=== PATIENT | male | born 1960 | race Caucasian/White ===

== ENCOUNTER 2023-09-23 15:16 | Emergency (ER) | payer BC, SELFPAY ==
[2023-09-23 15:18] VITALS: BP 174/100
[2023-09-23 16:24] VITALS: BP 157/89
[2023-09-23 17:12] LABS: % Basophils 0.5 % (0-2); % Eosinophils 2.5 % (0-6); % Immature Granulocytes 0.3 % (0-0.5); % Lymphocytes 21.7 % (20.5-51.1); % Monocytes 8.1 % (1.7-9.3); % Neutrophils 66.9 % (42.2-75.2); Absolute Basophils 0.1 10^3/uL (0-0.2); Absolute Eosinophils 0.3 10^3/uL (0-0.7); Absolute Lymphocytes 2.2 10^3/uL (1.2-3.4); Absolute Monocytes 0.8 10^3/uL (0.1-0.6); Absolute Neutrophils 6.6 10^3/uL (1.4-6.5); Hematocrit 36.5 % (39.0-52.0); Mean Corp Hgb Conc. 35.6 g/dL (33.0-37.0); Mean Corpuscular Volume 84.3 fL (80.0-94.0); Mean Platelet Volume 10.8 fL (7.4-10.4); Nucleated Red Blood Cells % 0 % (-); Platelet Count 187 10^3/uL (130-400); Red Blood Cell Count 4.33 10^6/uL (4.70-6.10); Red Cell Dist. Width 13.3 % (11.5-14.5); White Blood Cell Count 9.9 10^3/uL (4.8-10.8)
--- NOTE | 2023-09-23 17:26 | ED.GENMED ---
History of Present Illness
General
Chief Complaint: Blood Pressure Problem
Source: patient
Exam Limitations: none
Time Seen by Provider: 09/23/23 16:24
Nursing documentation reviewed up to this point in time: agreed with
Travel History
Have you had any contact with someone who has COVID-19?: No
Do you have any symptoms of coronavirus? Fever > 100 degrees, chills, cough, shortness of breath, sore throat, loss of taste or smell, muscle aches, or headache?: No
History of Present Illness
History of Present Illness:
62-year-old male with a history of A-fib status post ablation hypertension and hyperlipidemia, [id number] diabetes
here after being sent fro [facility] office for elevated bp 180-190/100
pt says he took all of his med stodya, including Diovan, 160 mg and metoprolol 50 mg succinate
Patient says he went to the dentist for cleaning. He had a mild headache at the time. When they routinely checked his blood pressure goes with the readings. Subsequently patient did tell them that he was having a jittery feeling, felt lightheaded
and had a slight headache, 2 out of 10. He is not having any residual lightheadedness, chest pain, shortness of breath, vision changes. His headache is still 2 out of 10 and he has not taken anything for it. He said he ate breakfast that morning
but he did not eat lunch. He was waiting to eat lunch until after his cleaning. This occurred around 2:15 PM today. Patient came directly here. He denies any facial numbness or tingling, focal weakness in his upper extremities or lower
extremities,
His normal blood pressure is around 130/80
Past History
Past History
ED Past Medical History: Arrthythmia (Atrial fib), Cancer, HTN, Hypercholesterolemia and NIDDM
ED Past Surgical History: Orthopedic and Other (Bone marrow)
Social History
Tobacco: Non-smoker
Alcohol: Occasional
Personal:
Living: with family
Employment: Employed
Review of Systems
Review of Systems
Allergies reviewed?: Yes
All Other Systems: Not applicable
Phy Exam
Physical Exam
Physical Exam:
GENERAL: Alert , in no apparent distress
EYE: pupils equal and reactive
NECK: Supple
ENT: o/p clr, mmm.
CARDIAC: Regular rate and rhythm .
LUNGS: Clear breath sounds bilaterally, no acute respiratory distress, no wheezes/rales/rhonchi
ABDOMEN: Soft, without focal tenderness, no r/g, no cvat, normal bowel sounds
NEUROLOGICAL: Alert and oriented, no focal neuro deficits, cn intact, 5/5 strength, sensatino intact, finger to nose normal
SKIN: Warm and dry, skin intact.
MUSCULOSKELETAL: No edema, well perfused. neg latia's sign
PSYCH: Normal and appropriate interaction.
Course
Orders/Labs/Results
Orders:
Orders
09/23/23 16:50
Electrocardiogram (*1) Stat
Reason for Study: Other
Other Reason for Exam: Headache
EKG- Treatment ONCE
Acetaminophen [Tylenol] 1,000 mg PO NOW STA
09/23/23 16:58
Complete Blood Count/With Diff Urgent
Comprehensive Metabolic Panel Urgent
Troponin I Urgent
Abnormal Lab Results
09/23/23
16:58
RBC 4.33 L 10^6/uL
(4.70-6.10)
Hct 36.5 L %
(39.0-52.0)
MPV 10.8 H fL
(7.4-10.4)
Absolute Neuts (auto) 6.6 H 10^3/uL
(1.4-6.5)
Absolute Monos (auto) 0.8 H 10^3/uL
(0.1-0.6)
Sodium 133 L mmol/L
(135-145)
Glucose 277 H mg/dl
(70-99)
09/23/23 16:58
09/23/23 16:58
Vital Signs
Initial and Last Documented VS:
Initial Vital Signs
Temp Pulse Resp BP Pulse Ox
98.5 F 92 16 174/100 99
09/23/23 15:18 09/23/23 15:18 09/23/23 15:18 09/23/23 15:18 09/23/23 15:18
Last Documented Vital Signs
Temp Pulse Resp BP Pulse Ox
98.5 F 92 16 152/89 99
09/23/23 15:18 09/23/23 15:18 09/23/23 15:18 09/23/23 17:58 09/23/23 15:18
MDM/Problems Addressed
Differential Diagnosis Includes:
htn, headache, hyperglycemia, anxiety
MDM/Problems Addressed:
62 y/o M with h/o htn, afib s/p ablations, NIDDM
hasn't worn c pap in > 1 year
here with mild headache, lightheadedness, jittery feeling when at the dentist office today for cleaning
they checked his BP prior to starting and it was elevated
pt had taken his meds but he hadn't eaten lunch
he came here and mostly feels better, midl headache but no lighrtheadedness
here pt's bp was elevated in triage but came down to 150/80s
pt is well appearing
neuro is intact
no c/o chest pain
has ekg which is sinus, LBBB, has subtle flattening laterally more than previously but no signfiicant changes
screening labs showed hyperglycemia but otherwise normal AG, normal cr
bp again 150/70
pt's headache resolved with tylenol
d/w ed attending
consider that pt's BP is elevated because of sleep apnea, nonomcpliance with his cpap
pt will f/u with pcp
stable for discharge
*Critical Care Note
Total Time (30-74mins, 75-104mins- exclusive of procedures): Not Applicable
ED Attending Note
-
Portions of this chart may have been created with voice recognition software.� Occasional wrong word or��sound alike� substitutions may have occurred due to the inherent limitations of voice recognition software.
Discharge Plan
Departure
Patient Disposition: Home (Routine Discharge)
Date of Disposition: 09/23/23
Time of Disposition: 18:09
Patient with high blood pressure during this ER visit?: Yes
Condition: Fair
Discharge Problem:
Hypertension, Type 2 diabetes mellitus without complications
Instructions: High Blood Pressure (DC), High Blood Sugar, Adult (DC)
Prescriptions:
No Action
rosuvastatin [Crestor] 10 MG tablet
1 ea PO HS
metformin 500 MG tablet
1,000 mg PO BID
amiodarone [Pacerone] 200 MG tablet
200 mg PO DAILY
pantoprazole 40 MG tablet,delayed release (DR/EC)
40 mg PO DAILY Qty: 14 0RF
Rx Instructions:
Take daily for 2 weeks then stop
sitagliptin phosphate [Januvia] 100 MG tablet
100 mg PO DAILY Qty: 30 1RF
Rx Instructions:
=
metoprolol succinate 50 MG tablet extended release 24 hr
50 mg PO DAILY
apixaban [Eliquis] 5 MG tablet
5 mg PO BID
valsartan [Diovan] 160 MG capsule
160 mg PO DAILY
Referrals:
Catarino Torres MD [Family Provider] - Follow up in 2-3 days
Activity Restrictions/Additional Instructions:
YOUR BLOOD PRESSURE CAME DOWN IN THE ER.
YOU SHOULD CONTINUE YOUR MEDS
THIS COULD HAVE BEEN SIUTATIONAL ELEVATION OF YOUR BLOOD PRESSURE
YOUR BLOOD SUGAR IS ELEVATED, YOU SHOULD BE SURE TO TAKE YOUR MEDICATION AND AVOID SUGARY FOODS
FOLLOW UP WITH YOUR DOCTOR THIS WEEK FOR BLOOD PRESSURE CHECK
RETURN FOR: WORSENING BLOOD PRESSURE, HEADACHE, BLURRED VISION, WEAKNESS, NUMBNESS, CHEST PAIN, SHORNTESS OF BREATH, OR ANY CONCERNS,
Interventions
Interventions:
*Risk Screen - Suicide Last Done: 09/23/23 15:18
*General Assessment Last Done: 09/23/23 15:18
*Neglect/Abuse Screening Last Done: 09/23/23 15:18
ED- Fall Risk Assessment Last Done: 09/23/23 18:15
*ED COVID-19 Vaccine History Last Done: 09/23/23 15:18
*Nursing Disposition Last Done: 09/23/23 18:15
ED- Cardiac Assessment Last Done: 09/23/23 18:15
ED- Neurological Assessment Last Done: 09/23/23 18:15
ED- Pulmonary Assessment Last Done: 09/23/23 18:15
Discharge Date and Time
Discharge Date/Time: 09/23/23 18:16
[2023-09-23 17:28] LABS: ALT (SGPT) 33 U/L (0-50); AST (SGOT) 35 U/L (17-59); Albumin 4.3 g/dl (3.5-5.0); Alkaline Phosphatase 53 U/L (38-126); Blood Urea Nitrogen 17 mg/dl (9-20); Calcium 9.4 mg/dl (8.4-10.2); Carbon Dioxide 27 mmol/L (22-30); Chloride 98 mmol/L (98-107); Glucose 277 mg/dl (70-99); Potassium 4.1 mmol/L (3.5-5.1); Sodium 133 mmol/L (135-145); Total Bilirubin 0.5 mg/dl (0.2-1.3); Total Protein 7.1 g/dl (6.3-8.2); eGFR > 60.00
[2023-09-23 17:35] LABS: Troponin I < 0.012 ng/ml
[2023-09-23] MEDS: TYLENOL 1000 MG PO (17:43)
[2023-09-23 17:58] VITALS: BP 152/89
== END 2023-09-23 18:16 | disposition home or self-care (01) ==
LOC: EMR 15:16
PROVIDERS: Physician Assistant; EMERGENCY PHYSICIAN Emergency Medicine; FAMILY PHYSICIAN Family Medicine
DX: R03.0 Elevated blood-pressure reading, without diagnosis of hypertension (principal); I48.91 Unspecified atrial fibrillation; I10 Essential (primary) hypertension; E11.9 Type 2 diabetes mellitus without complications
CPT/HCPCS: 99283; 80053; 84484; 85025; 93005

== ENCOUNTER 2023-09-26 13:47 | Emergency (ER) | payer BC, SELFPAY ==
[2023-09-26 13:52] VITALS: BP 179/96
[2023-09-26 14:17] LABS: % Basophils 0.6 % (0-2); % Eosinophils 3.1 % (0-6); % Immature Granulocytes 0.5 % (0-0.5); % Lymphocytes 25.1 % (20.5-51.1); % Monocytes 8.6 % (1.7-9.3); % Neutrophils 62.1 % (42.2-75.2); Absolute Basophils 0.1 10^3/uL (0-0.2); Absolute Eosinophils 0.3 10^3/uL (0-0.7); Absolute Immature Granulocytes 0.1 10^3/uL (0-0.05); Absolute Lymphocytes 2.7 10^3/uL (1.2-3.4); Absolute Monocytes 0.9 10^3/uL (0.1-0.6); Absolute Neutrophils 6.7 10^3/uL (1.4-6.5); Hematocrit 42.4 % (39.0-52.0); Hemoglobin 14.8 g/dL (13.0-18.0); Mean Corp Hgb Conc. 34.9 g/dL (33.0-37.0); Mean Platelet Volume 10.5 fL (7.4-10.4); Nucleated Red Blood Cells % 0 % (-); Platelet Count 216 10^3/uL (130-400); Red Blood Cell Count 4.93 10^6/uL (4.70-6.10); Red Cell Dist. Width 13.6 % (11.5-14.5); White Blood Cell Count 10.7 10^3/uL (4.8-10.8)
[2023-09-26 14:26] LABS: ALT (SGPT) 43 U/L (0-50); AST (SGOT) 48 U/L (17-59); Alkaline Phosphatase 48 U/L (38-126); Blood Urea Nitrogen 17 mg/dl (9-20); Calcium 9.8 mg/dl (8.4-10.2); Carbon Dioxide 25 mmol/L (22-30); Chloride 102 mmol/L (98-107); Glucose 201 mg/dl (70-99); Potassium 4.1 mmol/L (3.5-5.1); Sodium 136 mmol/L (135-145); Total Bilirubin 0.6 mg/dl (0.2-1.3); Total Protein 8.4 g/dl (6.3-8.2); eGFR > 60.00
[2023-09-26 17:05] VITALS: BP 164/101
--- NOTE | 2023-09-26 17:07 | ED.GENMED ---
History of Present Illness
General
Chief Complaint: Blood Pressure Problem
Source: patient and previous hospital records
Exam Limitations: none
Time Seen by Provider: 09/26/23 16:29
Nursing documentation reviewed up to this point in time: agreed with
Travel History
Have you had any contact with someone who has COVID-19?: No
Do you have any symptoms of coronavirus? Fever > 100 degrees, chills, cough, shortness of breath, sore throat, loss of taste or smell, muscle aches, or headache?: No
History of Present Illness
History of Present Illness:
The patient is a 71-year-old man with a past medical history of hypertension who comes in because he reports his blood pressure has been persistently elevated. Patient reports that at home, it was 190/100. Patient reports mild headache but denies
vision changes, weakness, numbness, chest pain or shortness of breath. Patient reports he feels well but he wants to make sure his blood pressure is better controlled.
Past History
Past History
ED Past Medical History: Arrthythmia (Atrial fib), Cancer, HTN, Hypercholesterolemia and NIDDM
ED Past Surgical History: Orthopedic and Other (Bone marrow)
Social History
Tobacco: Non-smoker
Alcohol: Occasional
Personal:
Living: with family
Employment: Employed
Family History
Family History: Other
Review of Systems
Review of Systems
Allergies reviewed?: Yes
All Other Systems: ROS reviewed and negative except as documented in HPI and ROS
Constitutional: Reports no symptoms
EENT: Reports no symptoms
Respiratory: Reports no symptoms
Cardiac: Reports no symptoms
ABD/GI: Reports no symptoms
: Reports no symptoms
Musculoskeletal: Reports no symptoms
Neurological: Reports headache
Endocrine: Reports no symptoms
Hematologic/Lymphatic: Reports no symptoms
Psychiatric: Reports no symptoms
Phy Exam
Physical Exam
Physical Exam:
Physical Exam
General: no apparent distress, not acutely ill. Well and comfortable appearing, smiling and conversational
Neck: supple. no meningeal signs. normal psoterior pharynx
Heart: s1/s2 regular rate and rhythm, no murmur. equal radial pulses.
Lungs: no acute respiratory distress. clear bilaterally
Abdomen: normal bowel sounds. not tender. no CVAT
Neuro: alert and oriented. no focal neurological deficits. EOMI. steady gait. 5 out of 5 strength in all extremities. Cranial nerves equal and symmetric bilaterally
Skin: no rash
Psychiatric: well kept. interactive and cooperative
Extremities: no edema. no calf tenderness. negative homans. good distal pulses
Course
Orders/Labs/Results
Orders:
Orders
09/26/23 13:55
EKG [Electrocardiogram (*1)] Urgent
Reason for Study: Hypertension, Benign
EKG- Treatment ONCE
09/26/23 14:06
Complete Blood Count/With Diff Urgent
Comprehensive Metabolic Panel Urgent
09/26/23 17:15
Valsartan [Diovan] 160 mg PO NOW STA
Abnormal Lab Results
09/26/23
14:06
MPV 10.5 H fL
(7.4-10.4)
Abs Immat Gran (auto) 0.1 H 10^3/uL
(0-0.05)
Absolute Neuts (auto) 6.7 H 10^3/uL
(1.4-6.5)
Absolute Monos (auto) 0.9 H 10^3/uL
(0.1-0.6)
Glucose 201 H mg/dl
(70-99)
Total Protein 8.4 H g/dl
(6.3-8.2)
09/26/23 14:06
09/26/23 14:06
Vital Signs
Initial and Last Documented VS:
Initial Vital Signs
Temp Pulse Resp BP Pulse Ox
98.4 F 79 18 179/96 98
09/26/23 13:52 09/26/23 13:52 09/26/23 13:52 09/26/23 13:52 09/26/23 13:52
Last Documented Vital Signs
Temp Pulse Resp BP Pulse Ox
98.4 F 74 15 168/96 99
09/26/23 18:08 09/26/23 18:08 09/26/23 18:08 09/26/23 18:08 09/26/23 18:08
MDM/Problems Addressed
Differential Diagnosis Includes:
Hypertension, hypertensive urgency, hypertensive emergency
MDM/Problems Addressed:
Patient presents with mild headache and high blood pressure readings at home
Chronic conditions affecting care: HTN
Acute Exacerbation and/or Progression of Chronic Illness: HTN
*Pulse Oximetry
Patient hypoxic: no
*EKG
Interpreted by ED Provider?: Yes
Interpretation: abnormal
Comparison EKG: no changes
Rate: normal
Rhythm: sinus
Floris: normal axis
Interval: first degree heart block
QRS Pattern: left vent hypertrophy
Ischemia: non-specific ST changes
*Folding Machine Feeder Interpretation
Rate: normal
Interpretation: normal
Rhythm: sinus
*Critical Care Note
Total Time (30-74mins, 75-104mins- exclusive of procedures): Not Applicable
Data Reviewed
Source: patient
Patient Management
Discussion with other providers: Other (Case discussed with Dr. Mildred Sullivan who recommended that we double patient's Diovan dose.)
Escalation/DeEscalation of care consider admission/obs:
Patient looks extremely well and comfortable. He has had no chest pain or shortness of breath to suggest acute coronary syndrome. His neurological exam is normal. His creatinine is normal. Patient happy to go home and increase his dose of Diovan
ED Attending Note
-
Portions of this chart may have been created with voice recognition software.� Occasional wrong word or��sound alike� substitutions may have occurred due to the inherent limitations of voice recognition software.
Discharge Plan
Departure
Patient Disposition: Home (Routine Discharge)
Date of Disposition: 09/26/23
Time of Disposition: 17:11
Patient with high blood pressure during this ER visit?: Yes
Condition: Good
Covid-19: Not Applicable
Discharge Problem:
HBP (high blood pressure)
Instructions: High Blood Pressure (DC), BLOOD PRESSURE
Prescriptions:
New
valsartan [Diovan] 320 mg tablet
320 mg PO DAILY Qty: 30 0RF
No Action
rosuvastatin [Crestor] 10 MG tablet
1 ea PO HS
metformin 500 MG tablet
1,000 mg PO BID
amiodarone [Pacerone] 200 MG tablet
200 mg PO DAILY
pantoprazole 40 MG tablet,delayed release (DR/EC)
40 mg PO DAILY Qty: 14 0RF
Rx Instructions:
Take daily for 2 weeks then stop
sitagliptin phosphate [Januvia] 100 MG tablet
100 mg PO DAILY Qty: 30 1RF
Rx Instructions:
=
metoprolol succinate 50 MG tablet extended release 24 hr
50 mg PO DAILY
apixaban [Eliquis] 5 MG tablet
5 mg PO BID
valsartan [Diovan] 160 MG capsule
160 mg PO DAILY
Referrals:
Catarino Torres MD [Family Provider] -
Activity Restrictions/Additional Instructions:
Your tubing assembler recommended that you double the dose of your Diovan.
Interventions
Interventions:
*Risk Screen - Suicide Last Done: 09/26/23 13:52
*General Assessment Last Done: 09/26/23 13:52
*Neglect/Abuse Screening Last Done: 09/26/23 13:52
*ED COVID-19 Vaccine History Last Done: 09/26/23 13:52
*Nursing Disposition Last Done: 09/26/23 18:08
ED- Cardiac Assessment Last Done: 09/26/23 18:06
ED- Neurological Assessment Last Done: 09/26/23 18:06
ED- Pulmonary Assessment Last Done: 09/26/23 18:06
Discharge Date and Time
Discharge Date/Time: 09/26/23 18:09
[2023-09-26] MEDS: DIOVAN 160 MG PO (17:43)
[2023-09-26 18:08] VITALS: BP 168/96
== END 2023-09-26 18:09 | disposition home or self-care (01) ==
LOC: EMR 13:47
PROVIDERS: Emergency Medicine; EMERGENCY PHYSICIAN Emergency Medicine; FAMILY PHYSICIAN Family Medicine
DX: I10 Essential (primary) hypertension (principal); I48.91 Unspecified atrial fibrillation; E11.9 Type 2 diabetes mellitus without complications; E78.00 Pure hypercholesterolemia, unspecified
CPT/HCPCS: 99283; 80053; 85025; 93005

== ENCOUNTER 2023-09-30 21:57 | Inpatient (IN) | payer BC, SELFPAY ==
[2023-09-30] VITALS (15 sets, daily range): BP systolic 114–172; BP diastolic 67–97; PULSE 94–100; BMI 29.5; BMI 28.8
[2023-09-30 16:00] LABS: % Basophils 0.3 % (0-2); % Eosinophils 1.9 % (0-6); % Immature Granulocytes 0.5 % (0-0.5); % Monocytes 8.7 % (1.7-9.3); % Neutrophils 65.6 % (42.2-75.2); Absolute Eosinophils 0.2 10^3/uL (0-0.7); Absolute Immature Granulocytes 0.1 10^3/uL (0-0.05); Absolute Lymphocytes 2.5 10^3/uL (1.2-3.4); Absolute Neutrophils 7.2 10^3/uL (1.4-6.5); Hematocrit 39.3 % (39.0-52.0); Hemoglobin 13.9 g/dL (13.0-18.0); Mean Corp Hgb Conc. 35.4 g/dL (33.0-37.0); Mean Corpuscular Hgb 30.1 pg (27.0-31.0); Mean Corpuscular Volume 85.1 fL (80.0-94.0); Mean Platelet Volume 10.5 fL (7.4-10.4); Nucleated Red Blood Cells % 0 % (-); Platelet Count 215 10^3/uL (130-400); Red Blood Cell Count 4.62 10^6/uL (4.70-6.10); Red Cell Dist. Width 13.6 % (11.5-14.5); White Blood Cell Count 10.9 10^3/uL (4.8-10.8)
[2023-09-30 16:23] LABS: ALT (SGPT) 30 U/L (0-50); AST (SGOT) 29 U/L (17-59); Albumin 4.7 g/dl (3.5-5.0); Alkaline Phosphatase 52 U/L (38-126); Blood Urea Nitrogen 21 mg/dl (9-20); Calcium 10.1 mg/dl (8.4-10.2); Carbon Dioxide 26 mmol/L (22-30); Chloride 97 mmol/L (98-107); Glucose 187 mg/dl (70-99); Sodium 136 mmol/L (135-145); Total Bilirubin 0.5 mg/dl (0.2-1.3); Total Protein 7.8 g/dl (6.3-8.2); eGFR > 60.00
[2023-09-30 16:24] LABS: Potassium 4.1 mmol/L (3.5-5.1)
--- NOTE | 2023-09-30 17:56 | ED.GENMED ---
History of Present Illness
General
Chief Complaint: Blood Pressure Problem
Time Seen by Provider: 09/30/23 17:53
Travel History
Have you had any contact with someone who has COVID-19?: No
Do you have any symptoms of coronavirus? Fever > 100 degrees, chills, cough, shortness of breath, sore throat, loss of taste or smell, muscle aches, or headache?: No
History of Present Illness
History of Present Illness:
HPI: Patient presents due to concerns of elevated blood pressure readings. This is his third visit to the ED over the last week. The last time he was here his valsartan was increased from 160 mg to 320 mg daily. He is still taking metoprolol
succinate 50 mg daily. He became concerned today because he had 2 episodes (and then another 1 here) of right upper extremity and right lower extremity dysesthesias that lasted for about 10 seconds each time. He has a mild dull headache. He is on
Eliquis for atrial fibrillation. He had trouble getting a hold of cardiology but was told by them to follow-up with PMD and asked PMD for input regarding BP management.
EXAM:
GENERAL: Well appearing in no distress, he is hypertensive
HEENT: Moist oral mucosa
CARDIOVASCULAR: No murmurs, normal heart rate and rhythm, No chest wall tenderness
PULMONARY: No respiratory distress, breath sounds are clear and equal
ABDOMEN: Soft with no peritoneal signs, no tenderness
NEUROLOGIC: Excellent strength all extremities, no coordination deficits, there are no sensory deficits
PSYCHIATRIC: Appropriate mental status, normal insight and judgement
EXTREMITIES: Nontender, no edema, moves all extremities equally
SKIN: No rash, no lesions
ED COURSE:
5:30 PM: I initially evaluated patient
NUMBER AND COMPLEXITY OF PROBLEMS ADDRESSED AT THE ENCOUNTER
� Chronic conditions affecting care: Diabetes, non-Hodgkin's lymphoma, A-fib, high blood pressure, hyperlipidemia
� Acute Exacerbation and/or Progression of Chronic Illness: This is an acute problem
� Differential Diagnosis includes: Hypertensive urgency, intracranial mass, vascular abnormality
AMOUNT AND/OR COMPLEXITY OF DATA TO BE REVIEWED AND ANALYZED
� I performed an independent evaluation of and my interpretation is:
EKG: Intraventricular conduction delay, ventricular rate 90, LVH, no significant change from 09/26/23
CT: I personally viewed CT imaging of the brain which shows the hyperdensity in the left occipital lobe and I also reviewed CTA imaging and discussed with radiology�DrLeeann Harmon feels there is no vascular abnormality
X-rays:
Laboratory Studies: Mild leukocytosis with white count 10.9, chemistries relatively unremarkable glucose is 187
Other:
� Review of other/old records: I reviewed the notes from the last 2 visits as well as cardiology notes related to atrial fibrillation
� Clinical information was obtained by an independent historian: I spoke to the at bedside
� Prescriptions/Medications Considered but not given:
� Further testing considered but not performed:
RISK OF COMPLICATIONS AND/OR MORBIDITY OR MORTALITY OF PATIENT MANAGEMENT
� Social determinants of health affecting care: Lives at home
� Discussion with other providers: See below; hospitalist for admission at 8:30 PM
� Escalation of care including admission/observation vs risk of discharge considered: The patient is very well-appearing however the patient reports new unilateral paresthesias therefore CT imaging was obtained. The CT does show
a type density at the left occipital lobe therefore I discussed with Dr. Francis recommends keeping blood pressure under 140 systolic, MRI with and without contrast tomorrow, neurology evaluation (I also notified Dr. Beckman), CTA imaging of the
head and neck
Past History
Past History
ED Past Medical History: Arrthythmia (Atrial fib), Cancer, HTN, Hypercholesterolemia and NIDDM
ED Past Surgical History: Orthopedic and Other (Bone marrow)
Social History
Tobacco: Non-smoker
Alcohol: Occasional
Personal:
Living: with family
Employment: Employed
Family History
Family History: Other
Phy Exam
Physical Exam
Physical Exam:
See HPI
Course
Orders/Labs/Results
Orders:
Orders
09/30/23 15:47
Electrocardiogram (*1) Urgent
Reason for Study: Hypertension, Benign
EKG- Treatment ONCE
09/30/23 15:55
CMP [Comprehensive Metabolic Panel] Urgent
Complete Blood Count/With Diff Urgent
09/30/23 18:08
CT Head W/o Iv Contrast Urgent
Comment:
Reason For Exam: intermittent R paresthesias
09/30/23 18:55
Labetalol HCl [Trandate] 10 mg IV NOW STA
Levetiracetam Injectable [Keppra] 1,000 mg IV NOW STA
09/30/23 19:04
CT Head & Neck Angio W/wo IV Urgent
Comment:
Reason For Exam: intermittent R paresthesias; abnormal brain CT
09/30/23 20:08
HydrALAZINE [Apresoline] 10 mg IV NOW STA
09/30/23 21:42
Admit/Transfer Patient As Directed
Co-Sign Provider:
Level of Care: Inpatient admission
Assign to:: IMU- Intermediate Care
Physician / Group: Ishaan
Diagnosis: Occipital Lesion / CVA
Reason for Hospitalization: Occipital Lesion / CVA
Expected length of stay greater than two midnights?: Yes
ELOS- Estimated Length of Stay in days: 2
I certify the patient meets the requirements for IP care: Yes
09/30/23 21:43
Code Status As Directed
Resuscitation Status: Full Code
09/30/23 23:20
Acetaminophen [Tylenol] 650 mg PO Q4HPRN PRN
Dextrose 50%-Water [Dextrose 50% Syringe] 12.5 grams IV [id number] PRN
Glucagon [GlucaGen] 1 mg IM PRN PRN
HydrALAZINE [Apresoline] 10 mg IV Q6HPRN PRN
Labetalol HCl [Trandate] 10 mg IV Q6HPRN PRN
Rosuvastatin Calcium [Crestor] 10 mg PO HS
09/30/23 23:20
NEUROLOGY CONSULT Routine
Consulting Provider: Celina Beckman
Was physician already notified: Yes
Reason for consult: L Occipital Lesion, CVA symptoms.
Neurosurgery Consult Routine
Consulting Provider: Dinah Garza
Was physician already notified: Yes
Reason for Consult: L Occipital Lesion on CT
Activity As Directed
Activity Level: Ambulate
With Assistance
Bedside Glucose Monitoring As Directed
Frequency: AC&HS
Comment: Change to q6h if pt on TPN, tube feeding or not eating
Bladder Scan As Directed
Follow Bladder Retention/Intermittent Cath Algorithm?: Yes
PRN if no void in __ hours: 6
Frequency: Per Retention Algorithm
If Bladder Scan Result >: 400
then:: Straight cath
EKG with chest pain [ECG as needed] As Directed
ECG as needed for:: Chest Pain
I/O [Intake/ Output] As Directed
Frequency: Per unit guidelines
Neurological Checks As Directed
Frequency: q4h
Orthostatic Vital Signs As Directed
Orthostatic VS Frequency: BID
Pneumatic Compression Sleeves As Directed
Type: Knee high
Straight Cath As Directed
Frequency: Per Retention Algorithm
Additional Instructions: straight cath as needed per acute urinary retention algorithm for 24 hrs
Additional Instructions: for bladder scan greater than 400 mL
Vital Signs As Directed
Frequency: Per unit guidelines
Weight As Directed
Frequency: Daily
Oxygen Therapy [O2 Therapy] [RESP] Routine
Titrate/Wean O2 to maintain O2 sat greater than (%): 94
Ot Eval And Treat Routine
PT Consult [Pt Eval And Treat] Routine
Activity Level: Ambulate
With Assistance
DX Deep Vein Thrombosis Video Routine
09/30/23 23:39
TSH Reflex To Free T4 Routine
10/01/23 04:16
Basic Metabolic Panel IN AM
Cardiovascular Evaluation IN AM
Complete Blood Count/No Diff IN AM
Glycohemoglobin (HgbA1c) IN AM
10/01/23 06:00
EKG [Electrocardiogram (*1)] IN AM
Reason for Study: Chest Pain
2000 calorie (17 carb) Diabetic
At Your Request: Full Participation
EEG Routine IN AM
Reason for Exam: Numbness / Tingling
MR Brain W/o & With Contrast IN AM
Comment:
Reason For Exam: CVA / L Occipital Lesion
Recent pill cam endoscopy?: No
10/01/23 07:30
Insulin Aspart Corrective Low [Novolog Flexpen-Low Resistance] See Protocol SC AC
10/01/23 08:00
Levetiracetam [Keppra] 500 mg PO BID
Metoprolol Xl [Toprol Xl] 50 mg PO DAILY
Sitagliptin Phosphate [Januvia] 100 mg PO DAILY
Valsartan [Diovan] 320 mg PO DAILY
Abnormal Lab Results
09/30/23
15:55
WBC 10.9 H 10^3/uL
(4.8-10.8)
RBC 4.62 L 10^6/uL
(4.70-6.10)
MPV 10.5 H fL
(7.4-10.4)
Abs Immat Gran (auto) 0.1 H 10^3/uL
(0-0.05)
Absolute Neuts (auto) 7.2 H 10^3/uL
(1.4-6.5)
Absolute Monos (auto) 1.0 H 10^3/uL
(0.1-0.6)
Chloride 97 L mmol/L
(98-107)
BUN 21 H mg/dl
(9-20)
Glucose 187 H mg/dl
(70-99)
09/30/23 15:55
09/30/23 15:55
Vital Signs
Initial and Last Documented VS:
Initial Vital Signs
Temp Pulse Resp BP Pulse Ox
98.1 F 88 16 169/95 98
09/30/23 15:37 09/30/23 15:37 09/30/23 15:37 09/30/23 15:37 09/30/23 15:37
Last Documented Vital Signs
Temp Pulse Resp BP Pulse Ox
97.9 F 88 19 136/76 95
10/01/23 14:00 10/01/23 13:15 10/01/23 13:15 10/01/23 13:15 10/01/23 14:00
*Critical Care Note
Total Time (30-74mins, 75-104mins- exclusive of procedures): Not Applicable
ED Attending Note
-
Portions of this chart may have been created with voice recognition software.� Occasional wrong word or��sound alike� substitutions may have occurred due to the inherent limitations of voice recognition software.
Discharge Plan
Departure
Patient Disposition: Admit
Date of Disposition: 09/30/23
Time of Disposition: 20:34
Presentation/result/management discussed w/ accepting MD/DO: Hospitalist
Discharge Problem:
Abnormal CT of brain
Interventions
Interventions:
*Risk Screen - Suicide Last Done: 09/30/23 15:37
*General Assessment Last Done: 09/30/23 18:19
*Neglect/Abuse Screening Last Done: 09/30/23 15:37
*ED COVID-19 Vaccine History Last Done: 09/30/23 15:37
*Nursing Disposition Last Done: 09/30/23 22:45
ED- Cardiac Assessment Last Done: 09/30/23 18:14
ED- Neurological Assessment Last Done: 09/30/23 18:18
ED- Pulmonary Assessment Last Done: 09/30/23 18:15
Discharge Date and Time
Discharge Date/Time: 09/30/23 22:45
[2023-09-30] MEDS: KEPPRA 1000 MG IV (19:06)
[2023-09-30] MEDS: TRANDATE 10 MG IV (19:07)
[2023-09-30] MEDS: APRESOLINE 10 MG IV (20:33)
--- NOTE | 2023-09-30 21:48 | HPS.HSE ---
Family Physician
-
Family Physician: Catarino Torres
Chief Complaint
-
Right Sided Numbness
History of Present Illness
Patient is a 63y M with PMH significant for hypertension and NHL who presents to ED complaining of headache and right-sided numbness. Patient notes that he has been having headaches and feeling 'jittery' and 'caffeinated' over he past few days.
He has been seen at the ED on 09/22 and 09/25 for these complaints and noted to have elevated BP. His Diovan was doubled on 09/25. Patient states that he has continued with mild frontal headache today. He has not had similar 'jittery' feelings.
Today around 2:45 PM he noted numbness / tingling sensation in the RLE, RUE and R face. Patient presented immediately to the ED. He states that he now has only very mild numbness in the R foot. He continues to have mild headache. Other symptoms
have resolved. He denies any issues with weakness or clumsiness of the right side. He denies any prior history of similar symptoms.
Patient has no other current complaints or concerns.
Medical History
Past Medical History
Past Medical History: Reports Other
Additional Past Medical History:
Non-Hodgkin's Lymphoma s/p Chemo / XRT and then s/p bone marrow biopsy
Atrial Fibrillation s/p PVI Ablation
Hypertension
Osteochondroma Left Thigh
DM-II
Past Surgical History: Reports Other
Additional Past Surgical History:
Left Thigh Benign Tumor Excision
Lymph Node Biopsies (L groin / R axilla)
PVI Ablation
Social History
Tobacco: Non-smoker
Alcohol: Occasional
Drug: None
Family History
Family History: Other (MGM: Gastric Cancer Father: Salivary Gland Cancer Mother: Urothelial Cancer Sister: Ovarian / NSCLC)
Allergies / Home Medications
Allergies reflects when Allergies were last updated in [facility].
Home Medications with original date entered in [facility]
Allergy/Medication List:
Allergies
Allergy/AdvReac Type Severity Reaction Status Date / Time
No Known Allergies Allergy Verified 09/26/23 13:55
Home Medications
rosuvastatin 10 mg tablet (Crestor) 10 mg PO HS High cholesterol 02/11/18
metformin 500 mg tablet 1,000 mg PO BID Diabetes 03/09/21
apixaban 5 mg tablet (Eliquis) 5 mg PO BID Blood clot prevention/tx 03/16/21
metoprolol succinate 50 mg tablet,extended release 24 hr 50 mg PO DAILY Blood pressure 03/16/21
sitagliptin phosphate 100 mg tablet (Januvia) 100 mg PO DAILY #30 tabs 03/16/21
valsartan 320 mg tablet (Diovan) 320 mg PO DAILY #30 tabs 09/26/23
Review of Systems
-
History Source: Patient
A 12 point ROS was completed and negative except as noted: Yes
Constitutional: Denies Fever or Chills
EENT: Denies Sore Throat
Respiratory: Denies Cough or Trouble Breathing
Cardiac: Denies Chest Pain or Palpitations
Abdomen/GI: Denies Abdominal Pain, Nausea, Vomiting or Diarrhea
: Denies Dysuria, Frequency or Flank Pain
Neurological: Reports Headache and Numbness; Denies Dizzy or Weakness
Psych: Denies Depression or Anxiety
Physical Exam
Vital Signs
Vital Signs
Temp Pulse Resp BP Pulse Ox
98.1 F 93 18 155/97 96
09/30/23 15:37 09/30/23 20:45 09/30/23 20:45 09/30/23 20:30 09/30/23 20:45
Physical Exam
General: Other (63y M in no acute distress)
HEENT: Moist mucous membranes and PERRLA
Respiratory: Clear; No Wheezes, Rales or Rhonchi
Cardiac: S1/S2, Regular Rhythm and Murmur (II/ BEST)
GI: Soft, Non Tender, Non Distended and Normal Bowel Sounds
Musculoskeletal: No Clubbing, No Cyanosis and No Edema
Neuro: AO x 3 and Other (Mild R sided weakness compared to the L in this R-hand dominant male. No sensory deficits.)
Psych: No Anxious or Depressed
Laboratory Results
-
09/30/23 15:55
09/30/23 15:55
Laboratory Results
Total Bilirubin 0.5 mg/dl (0.2-1.3) 09/30/23 15:55
AST 29 U/L (17-59) 09/30/23 15:55
ALT 30 U/L (0-50) 09/30/23 15:55
Alkaline Phosphatase 52 U/L (38-126) 09/30/23 15:55
Impression/Plan
-
A/P: Patient is a 63y M with PMH significant for hypertension, DM-II who presents to ED complaining of headache and R sided weakness.
Right-Sided Weakness
Headache
Left Occipital Lesion
- Admit to IMU for further evaluation and treatment.
- Right sided symptoms on exam / by history but not particularly consistent with occipital location.
- CTA without evidence of aneurysm or vascular abnormality.
- NeuroSurgery and Neurology discussed with ED.
- Check MRI in the AM.
- Keppra prophylaxis for now per Neurology.
- Monitor for any new / worsening symptoms.
- BP control overnight - targeting SBP < 140.
- Hold Eliquis acutely.
- Continue to monitor neurologic status.
Hypertension
- Aggressive BP control as noted above with target < 140 systolic.
- Continue outpatient med regimen.
- IV labetalol / hydralazine PRN for elevations.
DM-II
- Stable. Hold metformin acutely.
- Follow glucose and cover with SSI as needed.
- Update A1C.
Atrial Fibrillation s/p Ablation
- Patient states that he has maintained NSR since ablation.
- Remains on Eliquis - holding acutely as noted above.
- Monitor on tele.
History of NHL
- s/p initial XRT and chemo.
- Had recurrence and then s/p bone marrow transplant.
- Stable since. No acute issues.
DVT Prophylaxis: SCDs
Code Status: Full
[2023-09-30 23:32] LABS: Glucose - Point of Care 263 mg/dl (70-99)
[2023-09-30] MEDS: CRESTOR 10 MG PO (23:40)
[2023-10-01] VITALS (64 sets, daily range): BP systolic 114–178; BP diastolic 59–95; BMI 28.7
--- NOTE | 2023-10-01 00:12 | PTCARENOTE ---
Pt admitted to IMU. VSS,AAOX3. tingling sensation in the Rt limbs and face. Neuro check Q4. Pt show to be ortho hypotension. lightheadedness when standing. NSR in the monitor. GI//Lungs WNL. Call abarca within reach.
[2023-10-01 00:45] LABS: TSH Reflex To Free T4 5.03 uIU/ml (0.47-4.68)
[2023-10-01 02:49] LABS: Free T4 1.26 ng/dl (0.78-2.19)
[2023-10-01 04:43] LABS: Hematocrit 36.5 % (39.0-52.0); Hemoglobin 12.7 g/dL (13.0-18.0); Mean Corp Hgb Conc. 34.8 g/dL (33.0-37.0); Mean Corpuscular Hgb 29.6 pg (27.0-31.0); Mean Corpuscular Volume 85.1 fL (80.0-94.0); Mean Platelet Volume 10.9 fL (7.4-10.4); Platelet Count 198 10^3/uL (130-400); Red Blood Cell Count 4.29 10^6/uL (4.70-6.10); Red Cell Dist. Width 13.7 % (11.5-14.5); White Blood Cell Count 7.7 10^3/uL (4.8-10.8)
[2023-10-01 04:59] LABS: Blood Urea Nitrogen 22 mg/dl (9-20); Calcium 9.9 mg/dl (8.4-10.2); Carbon Dioxide 24 mmol/L (22-30); Chloride 103 mmol/L (98-107); Estimated Creatinine Clearance 103 ml/min; Glucose 279 mg/dl (70-99); HDL Cholesterol 38 mg/dl; LDL Cholesterol, Calculated 45 mg/dl; Sodium 135 mmol/L (135-145); Total Cholesterol 141 mg/dl (50-199); Triglyceride 290 mg/dl (10-149); Very Low Density Lipoprotein 58 mg/dl (0-30); eGFR > 60.00
--- NOTE | 2023-10-01 07:31 | W.PN.UPDATE ---
Update Note
Progress Note Update
Full consult to follow.
Imaging and chart reviewed. Discussed with ED attending last night.
Patient with hx of HTN and NHL, and presented with new onset right sided symptoms, in setting of several day hx of elevated BPs. CTH demonstrates small hyperdensity in left occipital lobe. CTA negative for AVM, aneurysm.
Recommend MRI brain with and without head chopper, to further evaluate occipital lesion for neoplasm vs cavernoma.
Hold eliquis until MRI brain reviewed.
Maintain in IMU, SBP <140, neurochecks.
[2023-10-01] MEDS: TRANDATE 10 MG IV ×2 (08:09→09:03)
--- NOTE | 2023-10-01 08:29 | CON.NEURO4 ---
Addendum entered and electronically signed by José Miguel Callaway MD 10/01/23 13:25:
Studies reviewed.
I have personally examined the patient. I reviewed and agree with the DIRECTOR ASSET's Note.
My addenda:
Awake, alert, interactive. No acute distress.
Speech intact.
Follows 2-step requests w/o difficulty. No tremor.
Extra-ocular movements grossly intact.
Facial movements full and symmetric. Hearing intact to normal conversational volume.
Normal UE movements bilaterally.
Neck: full ROM.
Chest: no dyspnea
Heart: no JVD
Ext: (-) Clubbing, (-) Cyanosis, (-) Edema
IMPRESSIONS/RECOMMENDATIONS:
Abrupt onset of headache right-sided paresthesias
With small left occipital intraparenchymal hemorrhage and intractable hypertension
Aggressive therapy to maintain systolic blood pressure less than 140, may need Cardene drip
Repeat imaging to confirm lack of expansion. If MRI of brain, goal would be to confirm absence of prior hemorrhage or lacunar infarct
May discontinue levetiracetam as the patient has not exhibited a seizure
Continue rosuvastatin
Goal of normoglycemia
Hold apixaban with consideration for restart in the next 48 hours
Total Critical Care Time= 40 minutes.
The neurological system is affected and the action required by me to prevent further deterioration or potential was control over the item listed first in the Impressions and Recommendations section of this note.
I was present and personally examined the patient. I discussed patient care with other professional health care providers.
Will continue to follow patient.
Original Note:
Documented by User: Jovita Morse NP 10/01/23 11:38
Consultation - Neurology 4
-
CONSULTING PHYSICIAN: José Miguel Callaway MD
REFERRING PHYSICIAN: Hospitalists/Dr. Quiros
DICTATED BY: NORM Gonzales
DATE/TIME OF REQUEST: 09/30/23
DATE/TIME OF CONSULTATION: 10/01/23
Reason for Consultation: Left occipital lobe hemorrhage
History of Present Illness:
This is a 63-year-old right-handed male who has presented to the hospital on 09/30/23 with report of headache, right-sided paresthesias, and elevated blood pressure. Patient notes that for the past week he has had a dull frontal headache and some
light-headedness. He was previously evaluated in the ER on 09/23/23 and 09/26/23 for these complaints and systolic blood pressure readings of the 190's. His blood pressure medication dosages were adjusted and he was discharged home. Yesterday (09/30/23)
around 1500, he reports suddenly developing a tingling sensation on the right side of his mouth and in his right arm and right leg all at once. This resolved spontaneously in about 20 seconds but occurred two more times for the same duration,
prompting him to come to the ER for evaluation. CT head was obtained on arrival and demonstrates a 1.1 cm focus of hypoattenuation in the left occipital lobe concerning for hemorrhage, vascular lesion, or neoplasm. CTA head/neck was obtained and is
negative for vessel abnormality. He is taking Eliquis 5mg BID for Afib. Patient was provided levetiracetam for seizure prophylaxis. Neurosurgery is following. Currently, patient denies any headache, dizziness, vision changes, speech/swallow
difficulty, numbness, weakness, nausea, chest pain, palpitations, and shortness of breath.
Past Medical History: Afib (Eliquis), Non-hodgkin's lymphoma, HTN, HLD, NIDDM, KARINA
Surgical History: Ablation, bone marrow transplant, lymph node biopsy, bone spur removal
Family History: Reviewed and noncontributory.
Social History: Occasional alcohol. Denies tobacco and illicit drug use.
Allergies: No known allergies.
Home Medications: See below.
Review of Symptoms:
Patient denies any fever, headache, chest pain, shortness of breath, GI or symptoms.
�Per the HPI.�All systems are reviewed negative except above.
Physical Exam:
The patient is afebrile, abdomen is nondistended, breathing is unlabored, skin is warm and dry, no edema.
NIH Stroke Scale:
I performed the NIH stroke scale on the patient on 10/01/23 at 0845. The patient scored 0 points on the NIH stroke scale assessment, which were assigned as follows: See below.
Neurologic Examination:
The patient is awake, alert and oriented x 3. He is able to follow commands and answer questions appropriately. There is no aphasia or dysarthria. On cranial nerve assessment, pupils are 3 mm bilateral, round and reactive to light and
accommodation. Visual bernabe are full. Extraocular movements are intact. Facial sensations are intact and bilaterally symmetrical, there is no facial asymmetry. Hearing is intact bilaterally to normal conversation volume. Tongue palate and uvula
are midline. Sternocleidomastoid strengths are full bilaterally. Motor strengths are 5/5 bilateral upper and lower extremities on medical research [employer] scale. There is no drift or involuntary movement noted. Deep tendon reflexes are 2+ bilateral
upper and lower extremities and Babinski is absent bilaterally. There was no extinction noted on double simultaneous stimulation. Coordination is intact by finger to nose bilaterally.
Lab Results: See below.
Neuro Imaging:
1. CT Head 09/30/23: 1.1 cm focus of hyperattenuation in the left occipital lobe. Potential differential considerations would include blood products, a vascular lesion, or small neoplasm.
2. CTA Head/Neck 09/30/23: No clear CTA evidence for a vascular malformation at the location of concern in the left occipital lobe. An MRI of the brain without and with intravenous contrast could be performed for further characterization.
Differentials for the patient's presentation include:
1. Left occipital lobe lesion with hemorrhagic component, concern for hypertensive bleed vs neoplasm vs cavernoma.
2. Malignant hypertension
3. Poorly controlled NIDDM
Patient has the following risk factors for their symptoms: HTN, HLD, NIDDM, Afib, lymphoma
Recommendations:
-Hold Eliquis and all blood-thinning medications.
-SBP goal <140.
-Continue Keppra 500mg BID.
-MRI brain with and w/o contrast ordered/pending.
-NIHSS and neurological checks per unit guidelines.
-Provide patient with a stroke education packet.
-LDL goal <70. LDL is 45. Continue home rosuvastatin 10mg daily as LDL is at home.
-Goal normoglycemia, hbA1c is 10.0.
-PT/OT/ST evaluations.
-DVT prophylaxis with SCDs only.
-Will follow pending results.
Discussed patient care with: Dr. Callaway, the patient
NIH Stroke Score
Subsequent NIH Scale
Date of Subsequent NIH Scale: 10/01/23
Time of Subsequent NIH Scale: 08:45
NIH Stroke Score
Level of Consciousness: 0 - Alert
LOC Questions: 0-Answers both correctly
LOC Commands: 0-Performs both correctly
Best Horizontal Gaze: 0-Normal
Visual Bernabe: 0=Normal, no visual loss
Facial Palsy: 0=Normal, symmetrical
Motor - Right Arm: 0=No drift 10 seconds
Motor - Left Arm: 0=No drift 10 seconds
Motor - Right Le-No drift 5 seconds
Motor - Left Le-No drift 5 seconds
Limb Ataxia: 0-Absent
Sensation: 0-Normal
Best Language: 0-No aphasia
Dysarthria: 0-Normal
Extinction and Inattention: 0-No abnormality
Total Score:: 0
Vital Signs and Labs
-
Vital Signs and Labs:
Vital Signs
Temp Pulse Resp BP Pulse Ox
97.8 F 92 24 158/89 94
10/01/23 11:01 10/01/23 10:15 10/01/23 10:15 10/01/23 10:15 10/01/23 10:15
Lab Results
10/01/23 04:16
10/01/23 04:16
Sodium 135 mmol/L (135-145) 10/01/23 04:16
Potassium 4.0 mmol/L (3.5-5.1) 10/01/23 04:16
BUN 22 mg/dl (9-20) H 10/01/23 04:16
Glucose 279 mg/dl (70-99) H 10/01/23 04:16
Calcium 9.9 mg/dl (8.4-10.2) 10/01/23 04:16
LDL Cholesterol, Calc 45 mg/dl 10/01/23 04:16
Medications
-
Active Medications
Generic Name Dose Route Start Last Admin
Trade Name Freq PRN Reason Stop Dose Admin
Acetaminophen 650 mg 09/30/23 23:20
Acetaminophen 325 Mg Tablet PO 10/28/23 23:19
Q4HPRN PRN
Mild Pain / Temp > 101
Dextrose 12.5 grams 10/01/23 08:31
Dextrose 50% (0.5 Grams/Ml) 50 Ml Syringe IV 10/29/23 08:30
[id number] PRN
hypoglycemia
Protocol
Glucagon 1 mg 10/01/23 08:31
Glucagon 1 Mg Vial IM 10/29/23 08:30
PRN PRN
hypoglycemia - no IV access
Protocol
Hydralazine HCl 10 mg 09/30/23 23:20 10/01/23 08:38
Hydralazine 20 Mg/Ml Vial IV 10/28/23 23:19 10 mg
Q6HPRN PRN Administration
SBP > 140
Insulin Aspart 0 units 10/01/23 09:00 10/01/23 09:24
Insulin Aspart Moderate Resistance 300 Units/3 Ml Pen.Injctr SC 10/29/23 08:59 1 units
AC GABE Administration
Protocol
Labetalol HCl 10 mg 09/30/23 23:20 10/01/23 08:09
Labetalol Hcl 5 Mg/1 Ml (20 Mg/4 Ml) Injection IV 10/28/23 23:19 10 mg
Q6HPRN PRN Administration
SBP > 140
Levetiracetam 500 mg 10/01/23 08:00 10/01/23 09:25
Levetiracetam 500 Mg Regular Release Tablet PO 10/29/23 07:59 500 mg
BID GABE Administration
Metoprolol Succinate 50 mg 10/01/23 08:00 10/01/23 09:25
Metoprolol 50 Mg Extended Release Tablet PO 10/29/23 07:59 50 mg
DAILY GABE Administration
Rosuvastatin Calcium 10 mg 09/30/23 23:20 09/30/23 23:40
Rosuvastatin (Crestor) 10 Mg Tablet PO 10/28/23 23:19 10 mg
HS GABE Administration
Sitagliptin Phosphate 100 mg 10/01/23 08:00 10/01/23 09:25
Sitagliptin (Januvia) 100 Mg Tablet PO 10/29/23 07:59 100 mg
DAILY GABE Administration
Sodium Chloride 0 flush 09/30/23 23:00
Sodium Chloride 0.9% (Flush) Syringe IV 10/28/23 22:59
PER PROTOCOL GABE
Valsartan 320 mg 10/01/23 08:00 10/01/23 09:25
Valsartan 80 Mg Tablet PO 10/29/23 07:59 320 mg
DAILY GABE Administration
Home Medications
Medication Instructions Recorded
rosuvastatin 10 mg tablet (Crestor) 10 mg PO HS High cholesterol 02/11/18
metformin 500 mg tablet 1,000 mg PO BID Diabetes 03/09/21
apixaban 5 mg tablet (Eliquis) 5 mg PO BID Blood clot 03/16/21
prevention/tx
metoprolol succinate 50 mg 50 mg PO DAILY Blood pressure 03/16/21
tablet,extended release 24 hr
sitagliptin phosphate 100 mg 100 mg PO DAILY #30 tabs 03/16/21
tablet (Januvia)
valsartan 320 mg tablet (Diovan) 320 mg PO DAILY #30 tabs 09/26/23

Documented by User: José Miguel Callaway MD 10/01/23 13:09
NIH Stroke Score
NIH Stroke Score
Total Score:: 0
[2023-10-01] MEDS: APRESOLINE 10 MG IV (08:38)
--- NOTE | 2023-10-01 08:43 | PTCARENOTE ---
Assumed care of patient at beginning of this shift from previous RN. Dr Callaway contacted this RN to given labetolol urgently. BP at 0600 174/91 and at 0800 171/95. Labetolol ordered prn SBP >140. Med administered at 08:09 and BP changed to recycle
Q15m. BP at 08:35 169/92 while patient getting bedside EEG. Reviewed with neuro [employer] OFFICER Jovita who was in room to see patient. BP recycled at her request and was 169/92; hydralazine given, per Jovita, as ordered for persistent hypertension despite
labetolol and SBP >140. Dr Callaway currently in to see patient. PT requesting to work with patient; instructed to hold by Jovita at this time. NIHSS now ordered and being done at bedside by Jovita.
[2023-10-01 09:10] LABS: Glucose - Point of Care 197 mg/dl (70-99)
[2023-10-01] MEDS: NOVOLOG FLEXPEN-MODERATE RESISTANCE 1 UNITS SC (09:24)
[2023-10-01] MEDS: JANUVIA 100 MG PO (09:25)
[2023-10-01] MEDS: KEPPRA 500 MG PO ×2 (09:25→19:49)
[2023-10-01] MEDS: TOPROL XL 50 MG PO (09:25)
[2023-10-01] MEDS: DIOVAN 320 MG PO (09:25)
[2023-10-01] MEDS: CARDENE 200 IV (11:36)
--- NOTE | 2023-10-01 11:52 | PTCARENOTE ---
Patient started on Cardene drip per Dr Berg's order and Dr Callaway's request. Confirmed with [facility] pharmacist and Ban Jain nurse sales marketing manager that cardene infusion can be given on IMU. When initiating infusion unable to find in [facility] under IMU. Iesha
Jim, educator, notified. BP scheduled to record Q15M. Patient updated.
[2023-10-01 12:29] LABS: Glucose - Point of Care 265 mg/dl (70-99)
[2023-10-01] MEDS: NOVOLOG FLEXPEN-MODERATE RESISTANCE 5 UNITS SC ×2 (12:34→17:29)
--- NOTE | 2023-10-01 12:45 | PTCARENOTE ---
Addendum entered by Lesly Betts RN 10/01/23 13:26:
Dr Berg made aware; order entered to t/f to ICU. BP at 12:45 135/82 and 13:00 145/80. Report given to Lj. Patient transferred in bed and accompanied by .
Original Note:
[place] text from Iesha Fernandez stated per protocol, patient needs to go to ICU to remain on cardene infusion. Reviewed again with pharmacists Corine: cardene may be started on IMU but patient needs to be transferred. Ban Jain made aware. BP
154/90. Last PRN dose of labetolol given at 09:03. [place] text sent to Dr Berg and Dr Callaway. Await updated orders. Patient updated.
[2023-10-01] MEDS: TYLENOL 650 MG PO (13:42)
--- NOTE | 2023-10-01 13:47 | W.PN.HOSP.TC ---
Today's Communication/Plan
-
Transfer to ICU.
Cardene drip.
Hold Eliquis.
MRI of the brain
Continue neurochecks
Total Critical Care Time__45___ minutes. I was immediately available to the patient and staff. I personally examined, reviewed labs, diagnostic images/reports, interpretations, treatment plans, discussed patient care with other providers and
family or caregivers (if patient is unable to make decisions), entered orders as appropriate and documented the medical record.
Assessment / Plan
Assessment / Plan
Impression:
Patient is a 63y M with PMH significant for hypertension, DM-II who presents to ED complaining of headache and R sided weakness.
Concern for left occipital hemorrhagic CVA in the settings of hypertensive emergency
Hypertensive emergency.
Diabetes type 2.
Paroxysmal atrial fibrillation status post ablation
Anticoagulation with Eliquis
History of NHL status.
Plan:
Left occipital lesion concern for hemorrhagic CVA possibly in the settings of hypertensive emergency as well as secondary to anticoagulation with Eliquis.
Neurologic status stable with no focal findings on exam other than reported paresthesia mostly on the right upper extremity.
CTA not consistent with vascular abnormalities in the area
Neurology/neurosurgery input appreciated.
No reported seizures upon presentation.
MRI of the brain pending.
Hold Eliquis
Strict BP control with goal SBP less than than 140.
Initiate Cardene drip and monitor closely in ICU.
Continue preadmission regimen with metoprolol and valsartan.
Essential hypertensive with hypertensive emergency.
BP management as above
Check serum renin activity
Check ARR
Echocardiogram
Paroxysmal atrial fibrillation with history of ablation
�- Patient states that he has maintained NSR since ablation.
�- Remains on Eliquis - holding acutely as noted above.
�- Monitor on tele.
DM-II
�- Stable.� Hold metformin acutely.
�- Follow glucose and cover with SSI as needed.
�- Update A1C.
History of NHL
�- s/p initial XRT and chemo.�
�- Had recurrence and then s/p bone marrow transplant.
�- Stable since.� No acute issues.
DVT Prophylaxis:� SCDs
Code Status:� Full
Anticipated Discharge: > 48 hours
Subjective/Interval History
-
Date of Service: October 01, 2023
Objective Data
-
Labs:
Laboratory Results
10/01/23
04:16
WBC 7.7
Hgb 12.7 L
Hct 36.5 L
Plt Count 198
Sodium 135
Potassium 4.0
Chloride 103
Carbon Dioxide 24
BUN 22 H
Creatinine 0.9
Glucose 279 H
Calcium 9.9
Vital Signs:
Vital Signs
Temp Pulse Resp BP Pulse Ox
97.8 F 88 19 136/76 95
10/01/23 11:01 10/01/23 13:15 10/01/23 13:15 10/01/23 13:15 10/01/23 13:15
I&O
09/30/23 10/01/23 10/02/23
06:59 06:59 06:59
Intake Total 240 / 240 240 / 240
Output Total 650 / 650 575 / 575
Balance -410 / -410 -335 / -335
Physical Exam
-
General: Well Developed and No Apparent Distress
HEENT: Normocephalic, Atraumatic and Moist Mucous Membranes
Respiratory: Clear to Auscultation
Cardiac: Regular Rhythm and S1/S2; Negative Murmur, Rub or Gallop
GI: Soft, Nontender, Nondistended and Normal Bowel Sounds; Negative Organomegaly
Rectal: Deferred by Provider
Musculoskeletal: No Clubbing, No Cyanosis and No Edema
Skin: Negative Rash
Neuro: Nonfocal/Grossly Intact
--- NOTE | 2023-10-01 14:02 | EEG.RPT ---
Electroencephalogram Report
Recording
Date of EE10/01/23
Type of EEG: Routine
Length of EEG recordin mins
Done with Video Recording: Yes
Patient Status: Inpatient
Recording Conditions: Awake, Drowsy and Asleep
Hyperventilation Performed: No
Photic Stimulation Performed: Yes
Report
METHODS
A 21 channel digitized electroencephalogram was performed at [facility]. The 10/20 international system of electrode placement was used. In addition to EEG, the patient was monitored for EKG. The duration of the recording was 29 minutes.
BACKGROUND
During the awake state, with the eyes closed, the background consisted of a normal amplitude, 10-11 Hertz posterior reactive rhythm that attenuated appropriately with eye opening. Beta activity was distributed diffusely with an anterior
predominance. There was a normal anterior-posterior voltage gradient. With eye opening the background activity changed to a low voltage mixture of alpha, beta, and occasional theta range frequencies. There were no significant asymmetries of
background activity noted.
SLEEP
Stage II sleep was obtained and consisted of symmetrical sleep spindles and vertex sharp waves.
HYPERVENTILATION
Hyperventilation was not performed.
PHOTIC STIMULATION
Photic stimulation using a step-childers increase in photic frequency varying from 1-31 Hertz resulted in no driving responses but no appearance of abnormal activity.
ABNORMAL EEG ACTIVITY
None
CLINICAL EVENTS
None
INTERPRETATION AND CLINICAL CORRELATION
This EEG is normal during the awake and sleep states as well as during the activation procedure of photic stimulation. The study was limited at times by muscle artifact, during which time underlying epileptiform abnormalities cannot be definitively
ruled out. No seizures were noted during the recording. A normal EEG, in itself, does not rule out a diagnosis of epilepsy. If clinical suspicion for seizure persists, a sleep-deprived and/or prolonged recording may be warranted.
--- NOTE | 2023-10-01 14:06 | CON.INTV ---
Consultation
Consultation Request
Date/Time Consultation Requested: 10/01/2023
Date/Time Consultation Performed: 10/01/2023
Requesting Provider: Dr. Berg
Performing Provider: Dr. Soto Vieira
Reason for Consultation: Hypertensive emergency/intracranial hemorrhage
Medical History
-
History of Present Illness:
63-year-old man with past medical history significant for hypertension, non-Hodgkin lymphoma presented to the emergency room complaining of headache and right-sided numbness. The last few days has been feeling some headaches and jittery. He was
seen in the emergency room on 09/23/2023 and 09/26/2023 with complaints and he was noted to have elevated blood pressures. Medications were adjusted. Yesterday in the afternoon he noticed some numbness and tingling on the right lower extremity and
right upper extremity and right face. Came immediately to the emergency room. Denies any right-sided weakness. Denies nausea and vomiting. No prior episodes similar to this.
CT of the chest demonstrated left occipital small bleed. Patient is on chronic anticoagulation. Admitted for blood pressure control. Eventually started on Cardene drip. Needed to be transferred to the critical care unit for IV antihypertensive
therapy.
Denies any chest pain, denies hematuria, denies abdominal pain or back pain. Denies blurry vision.
Past Medical History
Past Medical History: Other (See assessment and plan section)
Social History
Tobacco: Non-smoker
Alcohol: Occasional
Drug: None
Family History
Family History: Reviewed & Not Pertinent
Allergies / Home Medications
Allergies
Allergy/AdvReac Type Severity Reaction Status Date / Time
No Known Allergies Allergy Verified 09/26/23 13:55
Home Medications
Medication Instructions Recorded Confirmed Last Taken Type
rosuvastatin 10 mg tablet (Crestor) 10 mg PO HS High cholesterol 02/11/18 09/30/23 09/29/23 History
metformin 500 mg tablet 1,000 mg PO BID Diabetes 03/09/21 09/30/23 09/30/23 History
apixaban 5 mg tablet (Eliquis) 5 mg PO BID Blood clot 03/16/21 09/30/23 09/30/23 History
prevention/tx
metoprolol succinate 50 mg 50 mg PO DAILY Blood pressure 03/16/21 09/30/23 09/30/23 History
tablet,extended release 24 hr
sitagliptin phosphate 100 mg 100 mg PO DAILY #30 tabs 03/16/21 09/30/23 09/30/23 Rx
tablet (Januvia)
valsartan 320 mg tablet (Diovan) 320 mg PO DAILY #30 tabs 09/26/23 09/30/23 09/30/23 Rx
Review of Systems
-
History Source: Patient
All other systems: Negative unless noted
Vitals / Labs / Diagnostic Testing
Vital Signs
Temp Pulse Resp BP Pulse Ox
97.8 F 88 19 136/76 95
10/01/23 11:01 10/01/23 13:15 10/01/23 13:15 10/01/23 13:15 10/01/23 13:15
Lab Data
10/01/23 04:16
10/01/23 04:16
Diagnostic Testing:
Physical Exam
-
HEENT: Normocephalic
Cardiovascular: S1/S2
Respiratory: Clear and Non-Labored Respirations
GI: Soft and Non Distended
Neurology: Awake and Alert
Skin: Warm
General: Respiratory Distress (n)
Assessment
-
Abrupt onset of headache, right-sided paresthesias and uncontrolled/difficult to control hypertension.
Hypertensive emergency
Small occipital intracranial hemorrhage
CT head with 1.1 cm focus of hyperattenuation on the left occipital lobe.
CT angiogram head and neck: No clear CTA evidence for vascular malformation in the location of the left occipital lobe.
Conditions present prior admission:
Non-Hodgkin lymphoma status postchemotherapy and radiation therapy
Atrial fibrillation status post ablation-on chronic anticoagulation
Hypertension
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
Type 2 diabetes
Plan and recommendations:
Patient has been transferred to the critical care unit for IV antihypertensive therapy.
CT of the head noted with a small left occipital bleed.
Continue with frequent neurological checks
Anticoagulation is now on hold, per neurology okay to restart in the next 48 hours if stable.
-
Normal renal function,
EKG 10/01/2023: Normal sinus rhythm. Nonspecific intraventricular conduction delay. Minimal voltage criteria for LVH. Nonspecific T wave abnormality. Prolonged QT.
Will obtain cardiac troponins, currently chest pain free.
Obtain chest x-ray , check mediastinum.
Obtain UA, evaluate for proteinuria.
-
Continue aggressive antihypertensive therapy
Continue statins
Cardene drip will be titrated for systolic blood pressure less than 140 mmHg
Continue oral antihypertensive as well
Eventual MRI of the brain, neurology following the patient.
-
Hyperglycemia: In the outpatient, patient on Januvia.
Follow blood sugars. Insulin will be provided if necessary
-
Patient reports having untreated obstructive sleep apnea for 10 years. At that time he was intolerant to CPAP.
Patient states that he already has an appointment at [facility]
Monitor or pulse oximetry.
-
DVT prophylaxis with SCDs for now.
-
Critical care statement: A total of 31 minutes of critical care time was provided for this patient today. This includes management of unstable vital signs, evaluation of the patient at bedside, reviewing the patient's pertinent medical medical
record , arterial blood gases, radiographs, microbiology, laboratory evaluations and discussion with primary team, critical care nursing, and respiratory therapy.
--- NOTE | 2023-10-01 15:02 | CM ---
Patient with Dx Hypertensive emergency, Small occipital intracranial hemorrhage. MRI Brain. Room air. Transferred from IMU to ICU today for Tanisha sumner. PT & OT on hold.
Met with patient in IMU;
the patient resides with his in a 2 story house.
He has been independent in ADLs and ambulation.
The patient was active & working.
He has no DME or prior VN.
PCP - Catarino Torres
Pharmacy - [facility] [address], [place]
CM continuing to follow for d/c needs.
Plan follow up after seen by PT/OT.
[2023-10-01 15:24] LABS: Troponin I < 0.012 ng/ml
--- NOTE | 2023-10-01 17:09 | PTCARENOTE ---
Patient received from IMU with assessment as noted. Continues alert, oriented and pleasant. C/O of a slight frontal headache upon arrival rated 2/10 and received 650 mg PRN Tylenol with his headache mostly resolved 1 hr later. NIH score of 0.
MRI-Brain w/wo contrast done at 1610 and patient returned to his room by 1650. aware that the MRI was done. NSR on monitor. Afebrile. SBP's maintained 120-140 with Cardene infusing at 5 mg/hr. Lungs CTA. Sa02 95% on room air. Bowel sounds
noted. No GI complaints. Voiding ad guevara. present in room and updated to patient condition. Patient currently in bed with call abarca and telephone in reach. Will continue to monitor closely.
--- NOTE | 2023-10-01 17:20 | CON.NS ---
Consultation
-
Date/Time Consultation Performed: 17:20, 10/01/2023
Performing Provider: Greg
Chief Complaint
History of Present Illness
This is a 63-year-old gentleman with a past medical history of hypertension, non-Hodgkin's lymphoma who presents for the third time to the emergency room with complaints of headache, and new right-sided paresthesias. He had been seen previously, in
the emergency room, 09/22, and 09/25 for similar complaints, was noted to have elevated blood pressures. He presented on 09/30/2023 with acute onset of numbness/tingling in the right side of the face, right arm, and right leg. He had a noncontrast CT
scan of the head, which demonstrated a left occipital area of hyperdensity, suspicious for possible hemorrhage versus other lesion/neoplastic. He is also he had a CTA which was negative for underlying arterial venous vascular lesion/aneurysm.
Patient seen and examined. He reports headache is improved. He reports that he has had an additional episode, lasting about 15 to 30 seconds, earlier this afternoon. It was not associate with any visual symptoms, or any headache.
Review of Systems
-
A 10 point review of systems was performed, which included constitutional, ENT, cardiovascular, respiratory, GI, , hematologic, endocrinologic, neurologic, psychiatric, was negative, except for stated in HPI.
Medication and Allergies
Home Medications
Home Medications
Medication Instructions Recorded
rosuvastatin 10 mg tablet (Crestor) 10 mg PO HS High cholesterol 02/11/18
metformin 500 mg tablet 1,000 mg PO BID Diabetes 03/09/21
apixaban 5 mg tablet (Eliquis) 5 mg PO BID Blood clot 03/16/21
prevention/tx
metoprolol succinate 50 mg 50 mg PO DAILY Blood pressure 03/16/21
tablet,extended release 24 hr
sitagliptin phosphate 100 mg 100 mg PO DAILY #30 tabs 03/16/21
tablet (Januvia)
valsartan 320 mg tablet (Diovan) 320 mg PO DAILY #30 tabs 09/26/23
Allergies
Allergies
Allergy/AdvReac Type Severity Reaction Status Date / Time
No Known Allergies Allergy Verified 09/26/23 13:55
Physical Exam
-
Exam:
Awake, alert, conversant
Pupils are equal and reactive
Extraocular movements are full, without any nystagmus.
Visual trinh are full on gross confrontation
Face is symmetric
Tongue is midline
Motor: 5/5 strength in upper and lower extremities. No pronator drift
Head is normocephalic/atraumatic
Neck is supple
Breathing nonlabored
Abdomen is soft
Extremities warm
Exams:� MR Brain W/o & With Contrast
CPT: 76806
PROCEDURE: MR Brain W/o  With Contrast
CLINICAL INDICATION: CVA / L Occipital Lesion
TECHNIQUE: Unenhanced and enhanced MRI imaging of the brain was performed. Precontrast sagittal and axial T1, as well as axial fast spin echo T2, FLAIR, and diffusion images were obtained. Postcontrast T1 axial and coronal images were also obtained.
COMPARISON: None.
Correlation: Head CT from previous day.
FINDINGS:
There are multiple lesions of low signal intensity susceptibility demonstrated. This includes a lesion in the left paramidline occipital lobe measuring approximately 10 mm. On T1, this has a peripheral low signal intensity margin and central
intermediate to decreased signal intensity. On T2, mild increased central signal intensity. Most consistent with cavernous malformation.
Additional smaller cavernous malformations are also present, as noted in the inferomedial left cerebellum measuring 4 mm, and right temporal lobe measuring 4 mm. There are a few additional white matter 1 to 2 mm foci noted in the left frontal lobe,
right parietal lobe, and right occipital lobe.
No restricted diffusion to indicate acute infarct. No other significant abnormal parenchymal signal intensity.
No abnormal parenchymal or meningeal enhancement.
No edema or mass effect. No midline shift or extra-axial collection. No hydrocephalus.
Normal flow-voids in the vascular structures at skull base.
Minor paranasal sinus mucosal thickening. No air-fluid level.
The mastoid air cells are clear.
IMPRESSION:
No acute infarct.
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
.
Electronically signed by Gerardo Eubanks MD 10/01/2023 5:10 PM
Dictated By: Raimundo MOSQUERA,Gerardo Diallo.
Dictated Date & Time: 10/01/23 6957
Problems
-
Problem Status Onset Code
Abnormal CT of brain R90.89
Assessment / Plan
-
This is a 63-year-old gentleman that presents with right-sided paresthesias, headache, in the setting of elevated blood pressures. CT of the head, and CTA was reviewed. MRI of the brain with and without contrast was also reviewed. This does
indeed confirm left occipital small cavernous malformation/cavernoma. There is also evidence of additional cavernous malformations, smaller in size within the left cerebellum, as well as right temporal lobe and punctate foci within the left frontal
lobe, right parietal lobe, and right occipital lobe.
EEG is negative for seizures
Given MRI findings, and that patient symptomatology, does not correlate with left occipital ICH/cavernoma, likely hyperdensity noted on CT scan is incidental in nature. No neurosurgical intervention is indicated.
Okay to resume Eliquis from a neurosurgical standpoint.
Recommend appropriate, aggressive control of patient's blood pressure.
Further workup/management per medicine/neurology.
Patient can follow-up with me in the office in approximately 6 months, with a repeat brain MRI
discussed with Dr. Gayle.
[2023-10-01 17:39] LABS: Glucose - Point of Care 273 mg/dl (70-99)
[2023-10-01] MEDS: LANTUS 0.149999999999999994 UNITS SC (19:49)
[2023-10-01] MEDS: CRESTOR 10 MG PO (21:12)
[2023-10-01 22:53] LABS: Glucose - Point of Care 248 mg/dl (70-99)
[2023-10-01 22:55] LABS: Urine Albumin 1+ (Neg - Trace); Urine Bilirubin Negative (Negative); Urine Character Clear (Clear); Urine Color Yellow; Urine Glucose 3+ (Negative); Urine Ketone Negative (Negative); Urine Leukocyte Negative (Negative); Urine Nitrite Negative (Negative); Urine Occult Blood Negative (Negative); Urine Specific Gravity 1.015 (<1.030); Urine Urobilinogen Negative (Neg - 1+)
[2023-10-01 23:07] LABS: Urine Red Blood Cell None Seen /HPF (0-2)
[2023-10-02] VITALS (65 sets, daily range): BP systolic 114–160; BP diastolic 60–92; PULSE 84–87; BMI 28.7
[2023-10-02] MEDS: CARDENE 200 IV (00:44)
--- NOTE | 2023-10-02 06:00 | PTCARENOTE ---
pt assessed as documented. oob to chair for 4hours. felt a little lightheaded after the transfer for a few seconds then it went away. no c/o a headache overnight. remains on cardene to maintain BP 120-140.
[2023-10-02 06:20] LABS: Mean Corpuscular Hgb 29.8 pg (27.0-31.0); Mean Corpuscular Volume 85.1 fL (80.0-94.0); Mean Platelet Volume 10.9 fL (7.4-10.4); Platelet Count 215 10^3/uL (130-400); Red Cell Dist. Width 13.6 % (11.5-14.5); White Blood Cell Count 8.8 10^3/uL (4.8-10.8)
[2023-10-02 06:39] LABS: Blood Urea Nitrogen 18 mg/dl (9-20); Calcium 8.9 mg/dl (8.4-10.2); Carbon Dioxide 25 mmol/L (22-30); Chloride 106 mmol/L (98-107); Estimated Creatinine Clearance 116 ml/min; Glucose 196 mg/dl (70-99); Potassium 3.6 mmol/L (3.5-5.1); Sodium 136 mmol/L (135-145); eGFR > 60.00
--- NOTE | 2023-10-02 07:22 | W.PN.NEURO.1 ---
Addendum entered and electronically signed by Robbie Gayle MD 10/02/23 14:13:
Will relax blood pressure goals, pursue less than 160 systolic for maximum
Addendum entered and electronically signed by Robbie Gayle MD 10/02/23 11:08:
Would stop Levetiracetam.
Original Note:
Today's Communication / Plan
-
-NIH and neurologic checks
-Remain off Eliquis for now, restart Eliquis on 10/06
-residential needs cardiology evaluation for Watchmen device as I feel the custodial risks of Eliquis for intracranial are significant, would be acceptable for Eliquis for the short term future
-Discussed with patient signs of stroke or severe headache that should pursue immediate medical attention
-Continue aggressive blood pressure treatment, aim for less than 140 systolic
-Neurosurgical input noted and appreciated
-No further brain imaging at this point unless there are clinical changes
-Needs neurology outpatient follow up with myself 4-6 weeks
Will follow
Neuro Assessment/Plan
Assessment
63 year old man with history of diabetes, hypertension, atrial fibrillation s/p ablation presenting to hospital with headache, right face/arm/leg paresthesia.
CT head initially showed left occipital lobe hyperdensity concerning for potential intracranial hemorrhage
Subsequent MRI shows multiple abnormalities on T2 and GRE with minimal to no contrast enhancement, most consistent with multiple cavernomas, no infarcts seen on the brain. Patient has family history of intracranial paternal grandfather had had
brain aneurysm, but otherwise no suggestive history of hereditary multiple brain cavernomas. Imaging more consistent with cavernomas rather than amyloid angiopathy.
One of these cavernoma lesions is probably causing some focal neurologic symptoms in the form of right face/arm/leg paresthesia, most likely the right parietal small lesion or the right temporal area lesion, left occipipital lobe lesion would not
produce those symptoms. No seizures seen no symptoms concerning for seizure.
Over custodial would recommend that patient seek watchmen device as means of avoiding long filler cigar roller machine anticoagulation with Eliquis given the risks of intracranial bleeding with the multiple cavernomas.
Subjective/Objective
Subjective Data
Date of Service: October 02, 2023
No acute events, on cardene 7.5 an hour, no headache, has some intermittent right hand numbness, previously had had some numbness on the right leg and face, no weakness no slurred speech
Objective Data
Vital Signs
Temp Pulse Resp BP Pulse Ox
98.6 F 83 14 148/85 96
10/02/23 03:41 10/02/23 07:00 10/02/23 07:00 10/02/23 07:00 10/01/23 16:00
Lab Results
10/02/23 06:03
10/02/23 06:03
Sodium 136 mmol/L (135-145) 10/02/23 06:03
Potassium 3.6 mmol/L (3.5-5.1) 10/02/23 06:03
BUN 18 mg/dl (9-20) 10/02/23 06:03
Glucose 196 mg/dl (70-99) H 10/02/23 06:03
Calcium 8.9 mg/dl (8.4-10.2) 10/02/23 06:03
LDL Cholesterol, Calc 45 mg/dl 10/01/23 04:16
Patient Allergies
No Known Allergies Allergy (Verified 09/26/23 13:55)
Review of Systems
-
History Source: Patient
All other systems: Reviewed and negative
Constitutional: No Symptoms
EENT: No Symptoms Reported
Respiratory: No Symptoms
Cardiac: No Symptoms
Abdomen/GI: No Symptoms
Genitourinary: No Symptoms
Musculoskeletal: No Symptoms
Skin: No Symptoms
Neuro: Numbness
Endocrine: No Symptoms
Hematologic / Lymphatic: No Symptoms
Allergy / Immunology: No Symptoms
Physical Exam
-
General: Comfortable
Eyes: No Ptosis
HEENT: Normocephalic
Neck: No Bruits Bilaterally
Respiratory: Clear to Auscultation
Cardiac: Regular Rhythm
GI: Normal Bowel Sounds
Skin: Unremarkable
Extremities: No Clubbing
Psych: Intact Judgement/Insight; Negative Confused
Extended Neurological Exam
Mood & Affect: Mood Unremarkable and Affect Unremarkable
Attention Span & Concentration: Awake, Alert and Interactive
Memory: Unremarkable
Tremor: Hand Tremor Absent
Involuntary Movement: None
Speech: Quality Unremarkable and Quantity Unremarkable; Negative Expressive Aphasia, Receptive Aphasia or Dysarthric
Cranial Nerve II: Left Eye: Pupillary Reactivity Unremarkable, Pupillary Size Unremarkable and Visual Bernabe Intact
Cranial Nerve II: Right Eye: Pupillary Reactivity Unremarkable, Pupillary Size Unremarkable and Visual Bernabe Intact
Cranial Nerves III, IV, : Extraocular Movement: Extraocular Movement Full in all Directions
Cranial Nerve V: Facial Sensation: Intact to Light Touch
Cranial Nerve VII: Facial Symmetry: Normal Facial Symmetry
Cranial Nerve VIII: Hearing: Unremarkable Hearing to Normal Conversational Volume
Cranial Nerves IX, X: Palate Movement: Palate Elevation Symmetric
Cranial Nerve XI: Shoulder Shrug: Unremarkable
Cranial Nerve XII: Tongue Protusion: Midline
Muscle Strength, Overall: Full Throughout
Pronator Drift: No Drift in Upper Extremities
Deep Tendon Reflexes: Trace Throughout
Cold Sensation: Unremarkable
Vibration Sensation: Unremarkable
Babinski Sign: Absent Bilaterally
Data Reviewed
-
CT Head: Report Reviewed and Image Reviewed
MRI Head: Report Reviewed and Image Reviewed
[2023-10-02 07:52] LABS: Glucose - Point of Care 199 mg/dl (70-99)
[2023-10-02] MEDS: DIOVAN 320 MG PO (08:08)
[2023-10-02] MEDS: TOPROL XL 50 MG PO ×2 (08:09→20:12)
[2023-10-02] MEDS: KEPPRA 500 MG PO (08:09)
[2023-10-02] MEDS: JANUVIA 100 MG PO (08:09)
[2023-10-02] MEDS: LANTUS 0.149999999999999994 UNITS SC (08:22)
[2023-10-02] MEDS: NOVOLOG FLEXPEN-MODERATE RESISTANCE 1 UNITS SC ×2 (10:07→18:08)
--- NOTE | 2023-10-02 11:18 | W.PN.INTV ---
Addendum entered and electronically signed by Soto Miller MD 10/02/23 12:38:
Discussed with Dr. Berg. Patient has been transferred to telemetry.
Critical care team will sign off.
Please call pulmonary if any respiratory issues arise.
Original Note:
Today's Communication / Plan
Recommendations
Continue Cardene drip, target systolic blood pressure less than 140 mmHg.
Continue oral antihypertensive, titration per cardiology
Start DVT prophylaxis
Diabetes control
Metformin, insulin sliding scale, Januvia.
Low carbohydrate diet
Assessment
-
Abrupt onset of headache, right-sided paresthesias and uncontrolled/difficult to control hypertension.
Hypertensive emergency
Small occipital intracranial hemorrhage
CT head with 1.1 cm focus of hyperattenuation on the left occipital lobe.
CT angiogram head and neck: No clear CTA evidence for vascular malformation in the location of the left occipital lobe.
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
Conditions present prior admission:
Non-Hodgkin lymphoma status postchemotherapy and radiation therapy
Atrial fibrillation status post ablation-on chronic anticoagulation
Hypertension
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
Type 2 diabetes
Plan and recommendations:
Patient has been transferred to the critical care unit for IV antihypertensive therapy.
-
CT of the head noted with a small left occipital bleed.
MRI ordered by neurology: Showed multiple cavernous malformations. Did not confirm intracranial bleed.
Discussed with neurology, continue with target systolic blood pressure 140 mmHg given patient's symptoms.
Continue Cardene drip, will wean down as able.
Oral antihypertensive, to be titrated by cardiology.
Continue with frequent neurological checks
-
Anticoagulation is now on hold, defer to neurology to start at a later time.On 10/07/2023.
-
Normal renal function,
EKG 10/01/2023: Normal sinus rhythm. Nonspecific intraventricular conduction delay. Minimal voltage criteria for LVH. Nonspecific T wave abnormality. Prolonged QT.
Will obtain cardiac troponins, currently chest pain free.
Chest x-ray was clear.
Urinalysis without significant hematuria. 1+ albuminuria. 3+ glucosuria.
-
Continue statins
-
Hyperglycemia: In the outpatient, patient on Januvia.
Restart metformin
Insulin sliding scale
Low carbohydrate diet.
-
Patient reports having untreated obstructive sleep apnea for 10 years. At that time he was intolerant to CPAP.
Patient states that he already has an appointment at [facility]
Monitor or pulse oximetry.
-
DVT prophylaxis with SCDs for now. Patient is off anticoagulation. No intracranial bleed noted. Start DVT prophylaxis with Lovenox.
-
Maintain ICU hemodynamic monitoring until Cardene drip can be discontinued.
-
Critical care statement: A total of 31 minutes of critical care time was provided for this patient today. This includes management of unstable vital signs, evaluation of the patient at bedside, reviewing the patient's pertinent medical medical
record , arterial blood gases, radiographs, microbiology, laboratory evaluations and discussion with primary team, critical care nursing, and respiratory therapy.
Subjective Dataa
Subjective Data
Date of Service:
Date of Service: October 02, 2023
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
Subjective:
Patient denies any nausea, vomiting headache or blurry vision.
Remains on nicardipine drip overnight.
Review of Systems
General: Fever (n)
Cardiopulmonary: Dyspnea (n), Cough (n) and Sputum Production (n)
GI: Abdominal Pain (n) and Nausea (n)
Objective Data
Data Reviewed
Vital Signs / I&O / Oxygen:
Vital Signs
Temp Pulse Resp BP Pulse Ox
97.7 F 86 18 141/86 97
10/02/23 07:56 10/02/23 09:30 10/02/23 09:30 10/02/23 09:30 10/02/23 08:00
Intake and Output
10/01/23 10/02/23 10/03/23
06:59 06:59 06:59
Intake Total 240 / 240 965 / 990 100.0 / 100.0
Output Total 650 / 650 1175 / 1175
Balance -410 / -410 -210 / -185 100.0 / 100.0
SaO2 97
Physical Exam
General: Respiratory Distress (n) and Comfortable
HEENT: Normocephalic
Cardiovascular: S1-S2 and Regular Rhythm
Respiratory: Clear and Non-Labored Respirations
GI: Soft and Non Distended
Neurology: Awake, Alert, Oriented, AO x 3 and No Motor Deficits
Skin: Warm
Labs/Micro/Reports
Lab Data
10/02/23 06:03
10/02/23 06:03
[2023-10-02] MEDS: NORVASC 10 MG PO (11:48)
[2023-10-02] MEDS: GLUCOPHAGE 1000 MG PO ×2 (11:53→22:12)
[2023-10-02 12:03] LABS: Glucose - Point of Care 298 mg/dl (70-99)
[2023-10-02] MEDS: NOVOLOG FLEXPEN-MODERATE RESISTANCE 5 UNITS SC (12:54)
[2023-10-02] MEDS: APRESOLINE 10 MG IV (13:43)
[2023-10-02] MEDS: TRANDATE 10 MG IV (14:08)
--- NOTE | 2023-10-02 16:45 | W.PN.HOSP.TC ---
Today's Communication/Plan
-
Transition off Cardene drip to readjusted oral antihypertensive regimen
Restart metformin, continue Januvia, continue initiated Lantus. May need insulin teaching prior to discharge.
Hold Eliquis to 10/06.
Continue neurochecks
Monitor blood pressure trend
Assessment / Plan
Assessment / Plan
Impression:
Patient is a 63y M with PMH significant for hypertension, DM-II who presents to ED complaining of headache and R sided weakness.
Initial concern for left occipital hemorrhagic CVA in the settings of hypertensive emergency, ruled out
-MRI of the brain with no evidence of acute infarct or hemorrhage. 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
Hypertensive emergency.
Diabetes type 2.
Paroxysmal atrial fibrillation status post ablation
Anticoagulation with Eliquis
History of NHL status.
Plan:
Left occipital lesion concern for hemorrhagic CVA possibly in the settings of hypertensive emergency as well as secondary to anticoagulation with Eliquis.
Neurologic status stable with no focal findings on exam other than reported paresthesia mostly on the right upper extremity.
CTA not consistent with vascular abnormalities in the area
MRI findings consistent with multiple cavernous malformation; negative for acute CVA or hemorrhage
Hold Eliquis through 10/06
Strict BP control with goal SBP less than than 140.
Initiate Cardene drip and monitor closely in ICU.
Essential hypertensive with hypertensive emergency.
BP management as above
Check serum renin activity
Check ARR
Echocardiogram with preserved biventricular function
Transition off Cardizem drip with attempt of better blood pressure control increasing dose of metoprolol to twice daily. Continue valsartan. Add nifedipine
Paroxysmal atrial fibrillation with history of ablation
�- Patient states that he has maintained NSR since ablation.
�- Remains on Eliquis - holding acutely as noted above.
Appreciate neurology input. Long-term anticoagulation risk and benefits need to be addressed as outpatient in the settings of brain cavernous malformations. Patient might benefit from outpatient cardiac monitoring with consideration of watchman if
anticoagulation is relatively contraindicated.
DM-II with hyperglycemia
Updated hemoglobin A1c 10
Restart metformin
Continue Januvia
Initiated on Lantus 15 units at bedtime.
Follow glucose and cover with SSI as needed.
History of NHL
�- s/p initial XRT and chemo.�
�- Had recurrence and then s/p bone marrow transplant.
�- Stable since.� No acute issues.
DVT Prophylaxis:� SCDs
Code Status:� Full
Anticipated Discharge: 24 - 48 hours
Subjective/Interval History
-
Date of Service: October 02, 2023
Objective Data
-
Labs:
Laboratory Results
10/02/23
06:03
WBC 8.8
Hgb 14.0
Hct 40.0
Plt Count 215
Sodium 136
Potassium 3.6
Chloride 106
Carbon Dioxide 25
BUN 18
Creatinine 0.8
Glucose 196 H
Calcium 8.9
Vital Signs:
Vital Signs
Temp Pulse Resp BP Pulse Ox
97.9 F 88 22 141/76 96
10/02/23 15:04 10/02/23 14:30 10/02/23 14:30 10/02/23 14:30 10/02/23 12:00
I&O
10/01/23 10/02/23 10/03/23
06:59 06:59 06:59
Intake Total 240 / 240 965 / 990 365.0 / 365.0
Output Total 650 / 650 1175 / 1175 400 / 400
Balance -410 / -410 -210 / -185 -35.0 / -35.0
Physical Exam
-
General: Well Developed and No Apparent Distress
HEENT: Normocephalic, Atraumatic and Moist Mucous Membranes
Respiratory: Clear to Auscultation
Cardiac: Regular Rhythm and S1/S2; Negative Murmur, Rub or Gallop
GI: Soft, Nontender, Nondistended and Normal Bowel Sounds; Negative Organomegaly
Rectal: Deferred by Provider
Musculoskeletal: No Clubbing, No Cyanosis and No Edema
Skin: Negative Rash
Neuro: Awake, Alert, Oriented, AO x 3 and Nonfocal/Grossly Intact
--- NOTE | 2023-10-02 17:38 | PTCARENOTE ---
Patient received in AM with assessment as noted. Continues alert, oriented and pleasant. NIH score of 0. OOB to ambulate in room and to the bathroom without difficulty. SBP parameters loosened to 120-160 and able to be maintained with Cardene gtt
d/c'd at 1400. NSR on monitor. Afebrile. B/P's as noted. Lungs CTA. Sao2 96% on room air. Appetite good. Brown formed bowel movement today. Voiding ad guevara. For transfer to telemetry pending bed availability. Family into visit and updated to patient
condition. Will continue to monitor closely.
[2023-10-02 17:51] LABS: Glucose - Point of Care 178 mg/dl (70-99)
[2023-10-02] MEDS: LOVENOX 40 MG SC (18:07)
[2023-10-02] MEDS: PROCARDIA XL (EXTENDED RELEASE) 30 MG PO (20:12)
[2023-10-02] MEDS: CRESTOR 10 MG PO (22:09)
[2023-10-02] MEDS: FLUSH (NSS) 2 FLUSH IV (22:13)
[2023-10-02 22:18] LABS: Glucose - Point of Care 205 mg/dl (70-99)
[2023-10-03] VITALS (32 sets, daily range): BP systolic 105–146; BP diastolic 58–86; PULSE 86–90; BMI 28.9
--- NOTE | 2023-10-03 03:21 | PTCARENOTE ---
Patient felt tingling in right hand when going from lying to sitting x 1 this shift. Denies dizziness or other symptoms. NIH 0. SBP 120-140's.
--- NOTE | 2023-10-03 07:48 | W.PN.NEURO.1 ---
Today's Communication / Plan
-
-Remain off Eliquis for now, restart Eliquis on 10/06
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
-Discussed with patient signs of stroke or severe headache that should pursue immediate medical attention
aim for less than 160 systolic
Neuro Assessment/Plan
Assessment
63 year old man with history of diabetes, hypertension, atrial fibrillation s/p ablation presenting to hospital with headache, right face/arm/leg paresthesia.
CT head initially showed left occipital lobe hyperdensity concerning for potential intracranial hemorrhage
Subsequent MRI shows multiple abnormalities on T2 and GRE with minimal to no contrast enhancement, most consistent with multiple cavernomas, no infarcts seen on the brain. Patient has family history of intracranial paternal grandfather had had
brain aneurysm, but otherwise no suggestive history of hereditary multiple brain cavernomas. Imaging more consistent with cavernomas rather than amyloid angiopathy.
One of these cavernoma lesions is probably causing some focal neurologic symptoms in the form of right face/arm/leg paresthesia, most likely the right parietal small lesion or the right temporal area lesion, left occipipital lobe lesion would not
produce those symptoms. No seizures seen no symptoms concerning for seizure.
Over long term care phlebotomist would recommend that patient seek watchmen device as means of avoiding jail anticoagulation with Eliquis given the risks of intracranial bleeding with the multiple cavernomas.
Plan
-Remain off Eliquis for now, restart Eliquis on 10/06
-longterm needs cardiology evaluation for Watchmen device as jail risks of Eliquis for intracranial are significant, would be acceptable for Eliquis for the short term future
-Discussed with patient signs of stroke or severe headache that should pursue immediate medical attention
aim for less than 160 systolic
-Needs neurology outpatient follow up
Subjective/Objective
Subjective Data
Date of Service: October 03, 2023
Objective Data
Vital Signs
Temp Pulse Resp BP Pulse Ox
36.8 C 84 18 107/62 97
10/03/23 03:24 10/03/23 06:00 10/03/23 06:00 10/03/23 06:00 10/02/23 20:00
Lab Results
10/02/23 06:03
10/02/23 06:03
Sodium 136 mmol/L (135-145) 10/02/23 06:03
Potassium 3.6 mmol/L (3.5-5.1) 10/02/23 06:03
BUN 18 mg/dl (9-20) 10/02/23 06:03
Glucose 196 mg/dl (70-99) H 10/02/23 06:03
Calcium 8.9 mg/dl (8.4-10.2) 10/02/23 06:03
LDL Cholesterol, Calc 45 mg/dl 10/01/23 04:16
Patient Allergies
No Known Allergies Allergy (Verified 09/26/23 13:55)
Past History
Past History
ED Past Medical History: Arrthythmia (Atrial fib), Cancer, HTN, Hypercholesterolemia and NIDDM
ED Past Surgical History: Orthopedic and Other (Bone marrow)
Social History
Tobacco: Non-smoker
Alcohol: Occasional
Personal:
Living: with family
Employment: Employed
Family History
Family History: Other (reviewed and non-contributory)
Medications
-
Medications:
Generic Name Dose Route Start Last Admin
Trade Name Freq PRN Reason Stop Dose Admin
Acetaminophen 650 mg 09/30/23 23:20 10/01/23 13:42
Acetaminophen 325 Mg Tablet PO 10/28/23 23:19 650 mg
Q4HPRN PRN Administration
Mild Pain / Temp > 101
Dextrose 12.5 grams 10/01/23 08:31
Dextrose 50% (0.5 Grams/Ml) 50 Ml Syringe IV 10/29/23 08:30
[id number] PRN
hypoglycemia
Protocol
Enoxaparin Sodium 40 mg 10/02/23 18:00 10/02/23 18:07
Enoxaparin Sodium 40 Mg/0.4 Ml Syringe SC 10/30/23 17:59 40 mg
QPM GABE Administration
Glucagon 1 mg 10/01/23 08:31
Glucagon 1 Mg Vial IM 10/29/23 08:30
PRN PRN
hypoglycemia - no IV access
Protocol
Hydralazine HCl 10 mg 10/02/23 14:13
Hydralazine 20 Mg/Ml Vial IV 10/28/23 23:19
Q6HPRN PRN
SBP > 160
Insulin Glargine 15 units/ 0.15 mls @ 0 mls/hr 10/02/23 08:00 10/02/23 08:22
Device SC 10/30/23 07:59 0.15 mls
DAILY GABE Administration
As Directed
Insulin Aspart 0 units 10/01/23 09:00 10/02/23 18:08
Insulin Aspart Moderate Resistance 300 Units/3 Ml Pen.Injctr SC 10/29/23 08:59 1 units
AC GABE Administration
Protocol
Labetalol HCl 10 mg 09/30/23 23:20 10/02/23 14:08
Labetalol Hcl 5 Mg/1 Ml (20 Mg/4 Ml) Injection IV 10/28/23 23:19 10 mg
Q6HPRN PRN Administration
SBP > 140
Metformin HCl 1,000 mg 10/02/23 11:00 10/02/23 22:12
Metformin 1000 Mg Regular Release Tablet PO 10/30/23 10:59 1,000 mg
BID GABE Administration
Metoprolol Succinate 50 mg 10/02/23 20:00 10/02/23 20:12
Metoprolol 50 Mg Extended Release Tablet PO 10/30/23 19:59 50 mg
BID GABE Administration
Nifedipine 30 mg 10/02/23 20:00 10/02/23 20:12
Nifedipine 30 Mg Extended Release Tablet PO 10/30/23 19:59 30 mg
BID GABE Administration
Rosuvastatin Calcium 10 mg 09/30/23 23:20 10/02/23 22:09
Rosuvastatin (Crestor) 10 Mg Tablet PO 10/28/23 23:19 10 mg
HS GABE Administration
Sitagliptin Phosphate 100 mg 10/01/23 08:00 10/02/23 08:09
Sitagliptin (Januvia) 100 Mg Tablet PO 10/29/23 07:59 100 mg
DAILY GABE Administration
Sodium Chloride 0 flush 09/30/23 23:00 10/02/23 22:13
Sodium Chloride 0.9% (Flush) Syringe IV 10/28/23 22:59 2 flush
PER PROTOCOL GABE Administration
Valsartan 320 mg 10/01/23 08:00 10/02/23 08:08
Valsartan 80 Mg Tablet PO 10/29/23 07:59 320 mg
DAILY GABE Administration
[2023-10-03 08:14] LABS: Glucose - Point of Care 184 mg/dl (70-99)
[2023-10-03] MEDS: PROCARDIA XL (EXTENDED RELEASE) 30 MG PO (08:33)
[2023-10-03] MEDS: NOVOLOG FLEXPEN-MODERATE RESISTANCE 1 UNITS SC (08:33)
[2023-10-03] MEDS: JANUVIA 100 MG PO (08:34)
[2023-10-03] MEDS: GLUCOPHAGE 1000 MG PO (08:34)
[2023-10-03] MEDS: TOPROL XL 50 MG PO (08:34)
[2023-10-03] MEDS: LANTUS 0.149999999999999994 UNITS SC (08:43)
--- NOTE | 2023-10-03 09:45 | PTOTSP ---
pt currently demonstrates ability to complete simple ADLs, functional transfers, ambulation with no assistance. pt did report intermittent numbness in fourth and fifth digit with activity that lasted less than one minute. RN notified. no acute OT
needs identified at this time, will sign off.
--- NOTE | 2023-10-03 09:50 | PTOTSP ---
PATIENT FUNCTIONING INDEPENDENTLY ON LEVEL SURFACES WELL ELEVATIONS. ONLY COMPLAINT WAS TINGLING IN RIGHT HAND 4TH AND 5TH DIGITS. RN AWARE. PATIENT REQUIRING NO FURTHER SKILLED P.T. SERVICES AT THIS TIME. WILL DISCHARGE FROM P.T.
[2023-10-03] MEDS: DIOVAN 320 MG PO (09:56)
[2023-10-03 12:47] LABS: Glucose - Point of Care 203 mg/dl (70-99)
[2023-10-03] MEDS: NOVOLOG FLEXPEN-MODERATE RESISTANCE 3 UNITS SC (13:33)
--- NOTE | 2023-10-03 13:42 | CON.CAR ---
Addendum entered and electronically signed by Gopal Simons MD 10/03/23 14:37:
I saw and examined the patient.
The PHOTOVOLTAIC FABRICATION TECHNICIAN's note was reviewed and I agree with the note.
Comment: 63 yo male with paroxysmal Afib on Eliquis s/p ablation 02/2021, HTN, DM and non Hodgkin's lymphoma, who presents to the ER with c/o right upper and lower extremity paraesthesias and headaches.� He had hypertensive on admit as well.� Head CT
was concerning for left occipital hemorrhagic CVA but brain MRI showed no evidence of acute infarct/hemorrhage and showed multiple cavernomas.� His Eliquis is on hold per neurology and they are requesting cardiology consult for Watchman device
implant evaluation.
- outpatient appt for Watchman scheduled October 21 9am
We will sign off, please call with questions/concerns.
Original Note:
Consultation
Consultation Request
Date/Time Consultation Requested: 10/03/23 9:45a
Date/Time Consultation Performed: 10/03/23 1:30p
Requesting Provider: Dr. Berg
Performing Provider: NORM Cabezas for Dr. Simons
Reason for Consultation: Afib on Eliquis with abnormal head CT
Medical History
-
Chief Complaint: right upper/lower extremity parathesias
History of Present Illness:
Mr. Lim is a 63 yo male with paroxysmal Afib on Eliquis s/p ablation 02/2021, HTN, DM and non Hodgkin's lymphoma, who presents to the ER with c/o right upper and lower extremity paraesthesias and headaches. He had hypertensive on admit as well.
Head CT was concerning for left occipital hemorrhagic CVA but brain MRI showed no evidence of acute infarct/hemorrhage and showed multiple cavernomas. His Eliquis is on hold per neurology and they are requesting cardiology consult for Watchman
device implant evaluation. Neurology plans to resume Eliquis on 10/07/23, for the short term. He denies any cardiac complaints at this time.
Past Medical History
Past Medical History: Other (as above)
Past Surgical History: Cardiac (afib/flutter ablation 02/2021) and Other (bone marrow transplant)
Social History
Tobacco: Non-Smoker
Alcohol: None
Personal:
Living: With Family
Employment: Employed
Family History
Family History: Reviewed & Not Pertinent
Allergies / Home Medications
Allergy/AdvReac Type Severity Reaction Status Date / Time
No Known Allergies Allergy Verified 09/26/23 13:55
Medication Instructions Recorded Confirmed Type
rosuvastatin 10 mg tablet (Crestor) 10 mg PO HS High cholesterol 02/11/18 09/30/23 History
metformin 500 mg tablet 1,000 mg PO BID Diabetes 03/09/21 09/30/23 History
apixaban 5 mg tablet (Eliquis) 5 mg PO BID Blood clot 03/16/21 09/30/23 History
prevention/tx
metoprolol succinate 50 mg 50 mg PO DAILY Blood pressure 03/16/21 09/30/23 History
tablet,extended release 24 hr
sitagliptin phosphate 100 mg 100 mg PO DAILY #30 tabs 03/16/21 09/30/23 Rx
tablet (Januvia)
valsartan 320 mg tablet (Diovan) 320 mg PO DAILY #30 tabs 09/26/23 09/30/23 Rx
Review of Systems
-
History Source: Patient
All other systems: Negative unless noted
Physical Exam
Vital Signs
Temp Pulse Resp BP Pulse Ox
97.9 F 84 19 106/66 96
10/03/23 08:00 10/03/23 10:00 10/03/23 10:00 10/03/23 10:00 10/03/23 11:31
Lab Results
10/02/23 06:03
10/02/23 06:03
Troponin I < 0.012 ng/ml 10/01/23 14:38
Impression / Plan
-
Afib - paroxysmal.
- s/p Afib/flutter ablation 02/2021.
- tele stable in NSR on Toprol, continue.
- on Eliquis, now on hold given cavernomas on brain MRI. plan to resume Eliquis 10/07/23 for the short term.
- group home plan is for Watchman device implant to avoid OAC therapy, given his increased risk of intracranial bleeding with the multiple cavernomas.
- Dr. Lafleur office appointment 10/22/23 at 9am for Watchman evaluation.
HTN - improved with medication adjustments.
- follow closely as an outpatient.
Cavernomas - multiple, seen on brain MRI.
- neurology following.
- Eliquis on hold, resume 10/07/23 per neurology.
- group home plan for Watchman device implant as above.
HLD - stable on Crestor, continue.
DM - insulin, per hospitalist.
NHL - stable.
Data Reviewed
-
EKG: Tracing Personally Visualized and interpreted
CT Scan: Report Reviewed by me
MRI: Report Reviewed by me
Medical Tests (Nuc Med, Echo etc): Report Reviewed by me
Labs: Labs Reviewed by me
Old Records: Reviewed
--- NOTE | 2023-10-03 14:34 | CM ---
CM following re: discharge planning.
Reviewed pt's chart, met with pt.
PT and OT evaluations noted - pt has no skilled needs.
D/C plan: home with no needs. Family to transport at discharge.
CM will follow with discharge plan updates as needed.
--- NOTE | 2023-10-03 14:55 | W.DS.TRANS ---
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
-
Discharge Instructions:
Discharge Diagnosis/Procedures Hypertensive emergency
Cavernous malformations in the brain.
Diabetes type 2.
Paroxysmal atrial fibrillation.
Anticoagulation with Eliquis.
History of non-Hodgkin lymphoma
Diet Diabetic, Carb Controlled
Instructions:
Stand-Alone Forms:
Changes to Home Medications: Yes
Discharge Medications:
DC Medications w/original date entered in [employer]
rosuvastatin 10 mg tablet (Crestor) 10 mg PO HS High cholesterol 02/11/18
metformin 500 mg tablet 1,000 mg PO BID Diabetes 03/09/21
apixaban 5 mg tablet (Eliquis) 5 mg PO BID Blood clot prevention/tx 03/16/21
sitagliptin phosphate 100 mg tablet (Januvia) 100 mg PO DAILY #30 tabs 03/16/21
valsartan 320 mg tablet (Diovan) 320 mg PO DAILY #30 tabs 09/26/23
insulin glargine 100 unit/mL (3 mL) subcutaneous pen (Lantus Solostar U-100 Insulin) 17 unit (0.17 mL) SC QPM #15 mL 10/03/23
metoprolol succinate 50 mg tablet,extended release 24 hr 50 mg PO BID #60 tabs 10/03/23
nifedipine 30 mg tablet,extended release 30 mg PO BID #60 tabs 10/03/23
pen needle, diabetic 32 gauge x 5/32' (BD Ultra-Fine Shantell Pen Needle) #200 ea 10/03/23
Home Medication Changes
Metoprolol dose increased to twice a day.
Nifedipine added.
Insulin initiated
Pending Results: Yes
Additional Pending Results:
Ringing plasma activity
Angiotensin renin ratio
--- NOTE | 2023-10-03 17:18 | PTCARENOTE ---
Walked pt through insulin administration using an insulin pen. Taught pt using all supplies that he would need, available at the bedside. Described to pt that he will be discharged on long acting insulin at a set dose of 17 units at night. 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 He described all major teaching points confidently. 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
hence how quickly he picked up on the teaching. Shortly after, pt left with and all belongings.
[2023-10-04 09:15] LABS: Aldosterone/Renin Activ Ratio 17.6 ratio (<=25.0); Renin Activity Results 0.4 ng/mL/hr
== END 2023-10-03 17:01 | disposition home or self-care (01) | DRG 304 ==
LOC: ICU 21:57
PROVIDERS: Nurse Practitioner Family; ADMITTING PHYSICIAN Hospitalist; ATTENDING PHYSICIAN Internal Medicine; CONSULT PHYSICIAN Internal Medicine Cardiovascular Disease; CONSULT PHYSICIAN Internal Medicine Critical Care Medicine; CONSULT PHYSICIAN Neurological Surgery; EMERGENCY PHYSICIAN Emergency Medicine; FAMILY PHYSICIAN Family Medicine; OTHER PHYSICIAN Psychiatry & Neurology Neurology
DX: I16.1 Hypertensive emergency (principal); Q28.3 Other malformations of cerebral vessels; Z94.81 Bone marrow transplant status; I10 Essential (primary) hypertension; I48.0 Paroxysmal atrial fibrillation; E11.65 Type 2 diabetes mellitus with hyperglycemia; G47.33 Obstructive sleep apnea (adult) (pediatric); E78.00 Pure hypercholesterolemia, unspecified; R33.9 Retention of urine, unspecified; Z79.84 Long term (current) use of oral hypoglycemic drugs; Z85.72 Personal history of non-Hodgkin lymphomas; Z79.01 Long term (current) use of anticoagulants; Z92.21 Personal history of antineoplastic chemotherapy; Z92.3 Personal history of irradiation
CPT/HCPCS: 70450; 70496; 70498; 70553; 71045; 80048; 80053; 80061; 81003; 81015; 82088; 82962; 83036; 84244; 84439; 84443; 84484; 85025; 85027; 93005; 93306; 95816; 96374; 96375; 97162; 97165; 99285; A9575; Q9967

== ENCOUNTER 2024-01-06 06:11 | Inpatient (IN) | payer BC, SELFPAY ==
[2023-12-24 08:03] VITALS: BMI 29.4
[2023-12-24 08:30] LABS: % Basophils 0.5 % (0-2); % Eosinophils 3.4 % (0-6); % Immature Granulocytes 0.3 % (0-0.5); % Lymphocytes 19.5 % (20.5-51.1); % Monocytes 8.6 % (1.7-9.3); % Neutrophils 67.7 % (42.2-75.2); Absolute Basophils 0.1 10^3/uL (0-0.2); Absolute Eosinophils 0.4 10^3/uL (0-0.7); Absolute Lymphocytes 2.5 10^3/uL (1.2-3.4); Absolute Monocytes 1.1 10^3/uL (0.1-0.6); Absolute Neutrophils 8.8 10^3/uL (1.4-6.5); Hematocrit 40.5 % (39.0-52.0); Hemoglobin 13.6 g/dL (13.0-18.0); Mean Corp Hgb Conc. 33.6 g/dL (33.0-37.0); Mean Corpuscular Hgb 29.9 pg (27.0-31.0); Mean Platelet Volume 10.9 fL (7.4-10.4); Nucleated Red Blood Cells % 0 % (-); Platelet Count 246 10^3/uL (130-400); Red Blood Cell Count 4.55 10^6/uL (4.70-6.10); Red Cell Dist. Width 13.6 % (11.5-14.5)
[2023-12-24 08:43] LABS: INR 1.36; PT 16.6 Sec (11.4-14.6)
[2023-12-24 08:46] LABS: ALT (SGPT) 21 U/L (0-50); AST (SGOT) 25 U/L (17-59); Albumin 4.8 g/dl (3.5-5.0); Alkaline Phosphatase 51 U/L (38-126); Blood Urea Nitrogen 30 mg/dl (9-20); Calcium 10.1 mg/dl (8.4-10.2); Carbon Dioxide 24 mmol/L (22-30); Chloride 103 mmol/L (98-107); Estimated Creatinine Clearance 84 ml/min; Glucose 179 mg/dl (70-99); Potassium 4.6 mmol/L (3.5-5.1); Sodium 139 mmol/L (135-145); Total Bilirubin 0.5 mg/dl (0.2-1.3); Total Protein 8.3 g/dl (6.3-8.2); eGFR > 60.00
--- NOTE | 2023-12-24 09:00 | HPS.HSE ---
Family Physician
-
Family Physician: Catarino Torres
Chief Complaint
-
Paroxysmal atrial fibrillation.
History of Present Illness
The patient is a 63 year old male presenting today for paroxysmal atrial fibrillation. He previously underwent 2 cardioversions and an ablation by Dr. Matilde Lafleur in February 2021. He is on current pharmacological therapy with Metoprolol
Succinate. He has been compliant with Eliquis for oral anticoagulation due to an elevated CHADS-VASc score. In September 2023, he was hospitalized due to recurrent headaches and right-sided paresthesias. A brain MRI revealed multiple cavernous
malformations which were likely contributing to his symptoms. Neurosurgery was consulted and recommended he come off oral anticoagulation entirely. At this time, it is advised that the patient proceed with a Watchman implant in the hopes of coming
off Eliquis in the near future. The patient denies any current complaints today such as chest pain, shortness of breath, palpitations, nausea, vomiting, diarrhea, lightheadedness, dizziness, cough, sore throat, or fever.
Medical History
Past Medical History
Past Medical History: Reports Other
Additional Past Medical History:
1. Paroxysmal atrial fibrillation, status post cardioversion x2 and ablation 02/2021; pharmacological therapy with Metoprolol Succinate, oral anticoagulation with Eliquis.
2. Hypertension with history of hypertensive emergency.
3. Dyslipidemia.
4. Mild aortic stenosis.
5. Left upper lobe pulmonary nodule.
6. Obstructive sleep apnea with newly advised BiPAP.
7. Insulin dependent diabetes.
8. Multiple cavernous malformations on brain MRI, 09/2023, with history of headaches and right-sided parasthesias.
9. Enlarged right thyroid lobe.
10. Arthritis.
11. Non-Hodgkin's lymphoma, status post bone marrow transplant, 1996, chemotherapy, and radiation.
12. Mild leukocytosis, asymptomatic.
Past Surgical History: Reports Other
Additional Past Surgical History:
1. Atrial fibrillation ablation.
2. Cardioversion x2.
3. Bone marrow transplant.
4. Bone marrow biopsy.
5. Bone spur excision.
6. Anal abscess excision.
7. Colonoscopy x3.
8. Endoscopy.
Social History
Tobacco: Non-smoker
Alcohol: Other (He reports social alcohol use on the weekends. )
Personal:
Living: Other (He lives with his spouse Gisela and son in a 2 story home. )
Family History
Family History: Not pertinent
Allergies / Home Medications
Allergy/Medication List:
Home medications:
1. Eliquis 5 mg p.o. twice a day.
2. Lantus 17 units subcutaneous at bedtime.
3. Januvia 100 mg p.o. daily.
4. Metformin 1000 mg p.o. twice a day.
5. Metoprolol Succinate 50 mg p.o. twice a day.
6. Nifedipine 30 mg p.o. twice a day.
7. Rosuvastatin 10 mg p.o. at bedtime.
8. Valsartan 320 mg p.o. daily.
Allergies: No known allergies.
Review of Systems
-
A 12 point ROS was completed and negative except as noted: Yes
Physical Exam
Vital Signs
Blood pressure 123/73. Heart rate 71. Respirations 18. Pulse ox 97% on room air.
Height 6 feet, 3 inches. Weight 106.7 kg. BMI 29.4.
Physical Exam
General: Well Developed, Well Nourished and No Apparent Distress
HEENT: NormoCephalic, Moist mucous membranes, Atraumatic and PERRLA
Respiratory: Clear
Cardiac: Regular Rhythm
GI: Soft, Non Tender and Non Distended
Musculoskeletal: Normal Gait & Station
Skin: Warm and Dry
Neuro: AO x 3 and Nonfocal/grossly intact
Laboratory Results
-
06/05/24 08:13
12/24/23 08:13
Laboratory Results
PT 16.6 Sec (11.4-14.6) H 12/24/23 08:13
INR 1.36 12/24/23 08:13
Total Bilirubin 0.5 mg/dl (0.2-1.3) 12/24/23 08:13
AST 25 U/L (17-59) 12/24/23 08:13
ALT 21 U/L (0-50) 12/24/23 08:13
Alkaline Phosphatase 51 U/L (38-126) 12/24/23 08:13
Type and screen O positive.
EKG 12/24/2023: Normal sinus rhythm. Non-specific intra-ventricular conduction block.
Echocardiogram 10/02/2023: Normal LV size and function with no regional wall motion abnormalities. LV ejection fraction is 55 to 60% by Sullivan's method. No LVH. Normal right ventricular size and function. Mild aortic stenosis. Compared to prior
from October 23, 2020, there is now mild aortic stenosis.
Nuclear stress test 03/06/2018: Normal perfusion imaging. There is no evidence of ischemia or prior infarction. The ejection fraction is 51%. This is a low risk study.
Impression/Plan
-
IMPRESSION/PLAN:
1. Paroxysmal atrial fibrillation: The patient is in need of a Watchman implant with Dr. Matilde Lafleur on 01/06/2024. The benefits and risks of the procedure have been explained to the patient. The patient understands these risks and wishes to
proceed. He will continue oral anticoagulation for 45 days post-procedure. At that time, he will undergo a post-procedural transesophageal echocardiogram. If his device is well seated without significant leaks or migration, he will be switched to
dual antiplatelet therapy for 6 months. After 6 months, he will remain on a daily Aspirin indefinitely.
[2024-01-06] VITALS (15 sets, daily range): BP systolic 118–155; BP diastolic 72–99
[2024-01-06 07:27] LABS: Glucose - Point of Care 165 mg/dl (70-99)
[2024-01-06 08:40] LABS: ACT-LR - POC 231 Seconds (116-155)
[2024-01-06 09:27] LABS: Glucose - Point of Care 163 mg/dl (70-99)
--- NOTE | 2024-01-06 10:47 | ITS.CL.PN ---
Traffic Assistant - Procedure Note
Procedure
Procedure Note:
Watchman KENNETH occlusion device implantation:
63 yrs old man with atrial fibrillation and cerebral AV malformation and advised to stop anticoagulation therapy is here for Watchman implantation.
Date of Procedure:
01/06/24
Indications:
Cerebral AV malformation and high risk of intracranial hemorrhage with with anticoagulation therapy for stroke prevention
Pre-Operative Diagnosis:
Cerebral AV malformation and high risk of intracranial hemorrhage with with anticoagulation therapy for stroke prevention
Post-Operative Diagnosis:
Cerebral AV malformation and high risk of intracranial hemorrhage with with anticoagulation therapy for stroke prevention
Procedure Performed:
Left atrial appendage occlusion with Watchman implantation (20 mm Watchman FLX Pro left atrial appendage closure device)
Performing Physicians:
CECE: Tristan Goodwin M.D.
Transseptal mold yard crane operator: Min Siddiqui M.D.
Implanter: Matilde thacker M.D.
Anesthesia:
See anesthesia records
Detailed Description of the Procedure:
Written informed consent was obtained from the patient after a full explanation of the risks and benefits of the procedure including the risks of sedation and anesthesia.
The patient was brought to the electrophysiology laboratory in stable condition in fasting state. Continuous electrocardiographic and hemodynamic monitoring was initiated.
The initial rhythm was normal sinus rhythm.
The procedure site was meticulously prepared with surgical scrub and allowed to dry with no pooling. Sterile draping was applied to cover the procedure site. The image intensifier was draped with sterile bag and positioned over the patient. After
infusion of local anesthetic, vascular access was obtained under ultrasound guidance and sheaths were placed over guide wire as detailed below.
Sheath and Catheter Placement:
In the right femoral vein, a 16-New Zealander sheath was placed for Watchman placement procedure.
Sheaths:
��������������� 9Fr with ICE
��������������� Watchman delivery sheath through the 16Fr sheath.
��������������� Watchman catheter
Intra cardiac ECHO (ICE):
Using AccuNav ICE catheter, ECHO of the cardiac chambers were done that provided the anatomy and a baseline ECHO study was performed. The left atrial size was enlarged. There was trace tricuspid regurgitation. The aortic valve was normal. There was
normal left ventricular size and function. There was no pericardial effusion.
During the procedure, ICE and CECE was used for monitoring of complications, guidance of trans-septal puncture, monitor the catheter position and tracking watchman implantation and level of compression.
No change in the pericardial space noted throughout the procedure.
Trans-septal Puncture:
Heparin was initiated and infused to maintain appropriate ACT.
A J-tipped guidewire was advanced through the 8-New Zealander sheath in the right femoral vein into the superior vena cava under fluoroscopic, ICE and CECE guidance. The 8Fr was upgraded to 16 Fr sheath. The Watchman sheath was advanced into the superior
vena cava over the guide wire. The ACFlotype� AcQCross Qx trans-septal apparatus was used through the Watchman sheath. The apparatus was withdrawn until it was in contact with the fossa ovalis. The position was adjusted based on fluoroscopy and
ultrasound images from ICE. Under fluoroscopic, hemodynamic and ICE/CECE ultrasound guidance, left atrium was cannulated by advancing the needle. The right atrial and left atrial pressure was monitored through the needle. An Amplatz guide wire was
placed and was advanced into the left superior pulmonary vein. Both the sheath and the dilator was advanced into the left atrium. The dilator with the needle was withdrawn. Blood was aspirated from the sheath and arterial blood confirmed. The sheath
was flushed. Saline injection noted into the left atrium on CECE. The LA pressure was recorded. The Agilis sheath was removed keeping the wire in place. The Watchman delivery sheath was placed over the Amplatz wire into the LA using a dilator. The
dilator and was removed and the sheath was flushed. The saline injection was noted in the LA on the CECE and ICE. A curved pig tail was advanced over the guide wire into the left atrium and the wire was removed.
Left atrial appendage atriography:
The pigtail was advanced into the KENNETH and was confirmed on fluoroscopy and CECE. The contrast was injected and the KENNETH shape was recorded in RAY /Caudal view (20/20 degrees). The size of the KENNETH was again checked and confirmed reviewing the CECE and
the fluoroscopy along with previously obtained CT scan images.
Watchman Deployment:
The Watchman delivery sheath was advanced into the KENNETH over the pigtail till the right marker was at the location of the orifice line marked on the screen. The pigtail was removed and the Watchman delivery system was advanced through the sheath into
the KENNETH till it was aligned with the outer sheath marker inside the KENNETH. The watchman sheath was clicked with the outer sheath. Once acceptable location achieved, the outer sheath was pulled back keeping the device steady at the KENNETH location till a
ball of the device was formed under fluoroscopic guidance. The whole system was advanced further into the KENNETH till adequate depth is achieved into the KENNETH.� The KENNETH occluder was deployed and expanded adequately anchoring to the KENNETH. The device was
kept anchored with stable pressure to that location for 10 seconds.
The CECE image confirmed adequate expansion. The tug test was done that showed the device is anchored well and is not able to come out. The compression was 25% and 27% on the two sides. There was no significant leak noted on the Doppler via CECE. A
contrast was injected showing adequate location of the device at the mouth of the KENNETH and no leak demonstrated.�
The device was deployed by unscrewing the Watchman device and releasing from the connecting wire. The wire was pulled back into the sheath and the sheath was pulled out of the LA.
Implanted device:
WATCHMAN FLX Pro � 20mm
Procedure End
CECE study was done again that showed no epicardial accumulation that was unchanged from earlier. A repeated images showed no change in the pericardial space. No complications noted.
Following the completion of the deployment, catheters were removed. Protamine 40 mg was given at the end of the procedure and ACT was checked repeatedly. The sheath was removed and hemostasis achieved with Figure of 8 suture and manual compression
after acceptable ACT is achieved.
Left atrial Pressure:
Mean LA pressure was 8mmHg
Mean RA pressure was 4 mmHg
Estimated Blood loss:
10 cc
Specimens Removed:
None.
Implants / Devices:
None
Urine output:
None
Packs / Drains/ Tubes:
None
Instrument / Sponge Count Correct:
Yes
Complications of the Procedure:
None
Condition of Patient at Time of Transfer:
Hemodynamically stable with no neurological or vascular compromise.
Summary:
Successful implantation of the left atrial occlusion device (WATCHMAN FLX Pro� 20mm)
Post procedure Plan for anticoagulation:
Continue Eliquis 5 mg BID for 45 days.
Based on 6 weeks CECE, will plan to switch Eliquis to Plavix and ASA.
In six months, will plan to discontinue Plavix and continue ASA 81 mg indefinitely.
[2024-01-06 11:29] LABS: Glucose - Point of Care 227 mg/dl (70-99)
[2024-01-06] MEDS: NOVOLOG vial 2 UNITS SC (11:29)
--- NOTE | 2024-01-06 14:11 | W.PN.UPDATE ---
Update Note
Progress Note Update
63 yo WM s/p Watchman device implant (same day). He feels good, no cp, sob, camilo diet, voiding, R fem site c/d/i, no HT. He will continue OAC Eliquis dose tonight at home. He will hold metformin 48hrs post procedure. Activity restrictions reviewed.
He will f/u cbc in 2 weeks. He is for d/c home after 2pm.
63 yrs old man with atrial fibrillation and cerebral AV malformation and advised to stop anticoagulation therapy is here for Watchman implantation.
Date of Procedure:
01/06/24
Indications:
Cerebral AV malformation and high risk of intracranial hemorrhage with with anticoagulation therapy for stroke prevention
Procedure Performed:
Left atrial appendage occlusion with Watchman implantation (20 mm Watchman FLX Pro left atrial appendage closure device)
--- NOTE | 2024-01-06 14:17 | W.DS.TRANS ---
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
-
Discharge Instructions:
Discharge Diagnosis/Procedures Afib post Watchman
Diet Low Cholesterol,Diabetic, Carb Controlled
Driving Restrictions No driving for 24 hours
Others Tests 45-day Follow Up CECE is scheduled at [facility] on 02/24/2024. You will receive a call to
set up pre-admission testing and instructions.
Instructions:
Stand-Alone Forms: DC Instructions- Cath/EP Lab
Changes to Home Medications: No
Discharge Medications:
DC Medications w/original date entered in [facility]
metformin 500 mg tablet 1,000 mg PO BID Diabetes 03/09/21
apixaban 5 mg tablet (Eliquis) 5 mg PO BID Blood clot prevention/tx 03/16/21
sitagliptin phosphate 100 mg tablet (Januvia) 100 mg PO DAILY #30 tabs 03/16/21
valsartan 320 mg tablet (Diovan) 320 mg PO DAILY #30 tabs 09/26/23
metoprolol succinate 50 mg tablet,extended release 24 hr 50 mg PO BID #60 tabs 10/03/23
nifedipine 30 mg tablet,extended release 30 mg PO BID #60 tabs 10/03/23
rosuvastatin 10 mg tablet 10 mg PO HS 12/23/23
insulin glargine 100 unit/mL (3 mL) subcutaneous pen (Lantus Solostar U-100 Insulin) 17 unit SC HS 12/24/23
Home Medication Changes
Pending Results: No
== END 2024-01-06 14:15 | disposition home or self-care (01) | DRG 273 ==
LOC: CATH-IN 06:11
PROVIDERS: Nuclear Medicine Nuclear Cardiology; ADMITTING PHYSICIAN Internal Medicine Cardiovascular Disease; FAMILY PHYSICIAN Family Medicine
PROC: B24BZZ4 Ultrasonography of Heart with Aorta, Transesophageal (ICD-10-PCS; 2024-01-06)
PROC: 02L73DK Occlusion of Left Atrial Appendage with Intraluminal Device, Percutaneous Approach (ICD-10-PCS; 2024-01-06)
DX: I48.0 Paroxysmal atrial fibrillation (principal); Q28.2 Arteriovenous malformation of cerebral vessels; Z94.81 Bone marrow transplant status; R91.1 Solitary pulmonary nodule; I35.0 Nonrheumatic aortic (valve) stenosis; E78.5 Hyperlipidemia, unspecified; D72.829 Elevated white blood cell count, unspecified; I10 Essential (primary) hypertension; G47.33 Obstructive sleep apnea (adult) (pediatric); E11.9 Type 2 diabetes mellitus without complications; M19.90 Unspecified osteoarthritis, unspecified site; Z85.72 Personal history of non-Hodgkin lymphomas; Z92.3 Personal history of irradiation; Z92.21 Personal history of antineoplastic chemotherapy; Z79.01 Long term (current) use of anticoagulants; Z79.84 Long term (current) use of oral hypoglycemic drugs; Z79.4 Long term (current) use of insulin
CPT/HCPCS: 33340; 36415; 76937; 80053; 82962; 85025; 85347; 85610; 86850; 86900; 86901; 87070; 87147; 93005; 93355; C1759; C1892; Q9967

== ENCOUNTER → 2024-03-02 07:53 | Day surgery (SDC) | payer BC, SELFPAY ==
[2024-03-02 09:07] LABS: Glucose - Point of Care 190 mg/dl (70-99)
== END ==
LOC: CATH 07:53
PROVIDERS: ATTENDING PHYSICIAN Nuclear Medicine Nuclear Cardiology; FAMILY PHYSICIAN Family Medicine; OTHER PHYSICIAN Internal Medicine Cardiovascular Disease
DX: Z09 Encounter for follow-up examination after completed treatment for conditions other than malignant neoplasm (principal); Z95.818 Presence of other cardiac implants and grafts; I08.3 Combined rheumatic disorders of mitral, aortic and tricuspid valves; I08.8 Other rheumatic multiple valve diseases; I10 Essential (primary) hypertension; I48.0 Paroxysmal atrial fibrillation; E78.5 Hyperlipidemia, unspecified; E11.9 Type 2 diabetes mellitus without complications; Z79.4 Long term (current) use of insulin; Z79.85 Long-term (current) use of injectable non-insulin antidiabetic drugs; Z79.899 Other long term (current) drug therapy
CPT/HCPCS: 93312; 93320; 93325; 82962

== ENCOUNTER 2024-12-19 13:50 | Emergency (ER) | payer BC, SELFPAY ==
[2024-12-19] VITALS (7 sets, daily range): BP systolic 152–174; BP diastolic 87–95; PULSE 78–85; BMI 28.6
[2024-12-19 14:23] LABS: % Basophils 0.5 % (0-2); % Eosinophils 1.8 % (0-6); % Immature Granulocytes 0.3 % (0-0.5); % Lymphocytes 19.2 % (20.5-51.1); % Neutrophils 69.2 % (42.2-75.2); Absolute Basophils 0.1 10^3/uL (0-0.2); Absolute Eosinophils 0.2 10^3/uL (0-0.7); Absolute Monocytes 0.9 10^3/uL (0.1-0.6); Absolute Neutrophils 7.2 10^3/uL (1.4-6.5); Hematocrit 36.1 % (39.0-52.0); Hemoglobin 12.2 g/dL (13.0-18.0); Mean Corp Hgb Conc. 33.8 g/dL (33.0-37.0); Mean Corpuscular Hgb 28.2 pg (27.0-31.0); Mean Corpuscular Volume 83.6 fL (80.0-94.0); Mean Platelet Volume 10.6 fL (7.4-10.4); Nucleated Red Blood Cells % 0 % (-); Platelet Count 225 10^3/uL (130-400); Red Blood Cell Count 4.32 10^6/uL (4.70-6.10); Red Cell Dist. Width 14.7 % (11.5-14.5); White Blood Cell Count 10.4 10^3/uL (4.8-10.8)
[2024-12-19 14:38] LABS: ALT (SGPT) 21 U/L (0-50); AST (SGOT) 23 U/L (17-59); Albumin 4.6 g/dl (3.5-5.0); Alkaline Phosphatase 58 U/L (38-126); Blood Urea Nitrogen 19 mg/dl (9-20); Calcium 9.8 mg/dl (8.4-10.2); Carbon Dioxide 22 mmol/L (22-30); Chloride 107 mmol/L (98-107); Glucose 123 mg/dl (70-99); Lipase 128 U/L (23-300); Potassium 4.3 mmol/L (3.5-5.1); Sodium 137 mmol/L (135-145); Total Bilirubin 0.6 mg/dl (0.2-1.3); Total Protein 7.8 g/dl (6.3-8.2); eGFR > 60.00
[2024-12-19 14:47] LABS: Troponin I < 0.012 ng/ml
[2024-12-19] MEDS: NSS 1000 IV (17:05)
[2024-12-19 17:16] LABS: Urine Albumin 1+ (Neg - Trace); Urine Bilirubin Negative (Negative); Urine Character Clear (Clear); Urine Glucose Negative (Negative); Urine Ketone Negative (Negative); Urine Leukocyte Negative (Negative); Urine Nitrite Negative (Negative); Urine Occult Blood 4+ (Negative); Urine Urobilinogen Negative (Neg - 1+); Urine pH 6.5 (5.0-9.0)
[2024-12-19 17:16] LABS: Magnesium 1.6 mg/dl (1.6-2.3)
[2024-12-19 17:17] LABS: Urine Color Straw
[2024-12-19 17:25] LABS: Urine Squamous Cell 0-2 /LPF (Few)
[2024-12-19 17:26] LABS: Urine White Cell 0-2 /HPF (0-5)
--- NOTE | 2024-12-19 17:56 | ED.GENMED ---
History of Present Illness
General
Chief Complaint: Dizziness
Source: patient and spouse
Exam Limitations: none
Time Seen by Provider: 12/19/24 16:05
Nursing documentation reviewed up to this point in time: agreed with
History of Present Illness
History of Present Illness:
64-year-old male past medical history of diabetes, non-Hodgkin's lymphoma, prostate cancer presenting to the emergency department today with concerns of lightheadedness that occurred while he was urinating earlier today also feels some vague
paresthesias through his chest and arms as well as nausea. He claims he is taking medications at this point for his prostate but otherwise new note no new medications. Denies any specific chest pain shortness of breath. Has noticed a small amount
of swelling to his right leg which has been somewhat chronic.
Past History
Past History
ED Past Medical History: Arrthythmia (Atrial fib), Cancer, HTN, Hypercholesterolemia and NIDDM
ED Past Surgical History: Orthopedic and Other (Bone marrow)
Social History
Tobacco: Non-smoker
Alcohol: Occasional
Personal:
Living: with family
Employment: Employed
Family History
Family History: Other (reviewed and non-contributory)
Review of Systems
Review of Systems
Allergies reviewed?: Yes
All Other Systems: ROS reviewed and negative except as documented in HPI and ROS
Phy Exam
Physical Exam
Physical Exam:
GENERAL: Alert , in no apparent distress
EYE: pupils equal and reactive
NECK: Supple, no significant adenopathy.
ENT: o/p clr, mmm.
CARDIAC: Regular rate and rhythm .
LUNGS: Clear breath sounds bilaterally, no acute respiratory distress, no wheezes/rales/rhonchi
ABDOMEN: Soft, without focal tenderness, no r/g, no cvat
NEUROLOGICAL: Alert and oriented, no focal neuro deficits
SKIN: Warm and dry, skin intact.
MUSCULOSKELETAL: No edema, well perfused.
PSYCH: Normal and appropriate interaction.
Course
Orders/Labs/Results
Orders:
Orders
12/19/24 14:06
Electrocardiogram (*1) Urgent
Reason for Study: Vertigo / Dizzy
12/19/24 14:07
EKG- Treatment ONCE
12/19/24 14:11
Complete Blood Count/With Diff Urgent
Comprehensive Metabolic Panel Urgent
Lipase Urgent
Magnesium Urgent
Comment: ADD ON
TSH Reflex To Free T4 Urgent
Comment: ADD ON
Troponin I Urgent
12/19/24 16:38
Add On- LAB Urgent
Tests Added?: dimer, magnesium, tsh free t4
Orthostatic VS- Treatment ONCE
12/19/24 16:39
0.9% Sodium Chloride 1000 ml [Nss] 1,000 ml IV BOLUS
12/19/24 16:54
D-Dimer Urgent
12/19/24 17:03
Urinalysis Reflex To Culture Urgent
Date Specimen was Collected: 12/19/24
Time Specimen was Collected: 17:02
Urine Microscopic Reflex Cult Urgent
12/19/24 17:31
CT Chest PE Study Urgent
Comment:
Reason For Exam: elevated dimer
Abnormal Lab Results
12/19/24 12/19/24 12/19/24
14:11 16:54 17:03
RBC 4.32 L 10^6/uL
(4.70-6.10)
Hgb 12.2 L g/dL
(13.0-18.0)
Hct 36.1 L %
(39.0-52.0)
RDW 14.7 H %
(11.5-14.5)
MPV 10.6 H fL
(7.4-10.4)
Absolute Neuts (auto) 7.2 H 10^3/uL
(1.4-6.5)
Absolute Monos (auto) 0.9 H 10^3/uL
(0.1-0.6)
Lymphocytes % 19.2 L %
(20.5-51.1)
D-Dimer 0.80 H ug/mlFEU
(0.00-0.50)
Glucose 123 H mg/dl
(70-99)
Ur Occult Blood Reflex 4+ A
(Negative)
Urine RBC 3-6 A /HPF
(0-2)
Urine Albumin (Reflex) 1+ A
(Neg - Trace)
12/19/24 14:11
12/19/24 14:11
Vital Signs
Initial and Last Documented VS:
Initial Vital Signs
Temp Pulse Resp BP Pulse Ox
98.4 F 81 18 154/95 98
12/19/24 14:02 12/19/24 14:02 12/19/24 14:02 12/19/24 14:02 12/19/24 14:02
Last Documented Vital Signs
Temp Pulse Resp BP Pulse Ox
98.5 F 83 20 168/93 97
12/19/24 15:42 12/19/24 20:00 12/19/24 19:30 12/19/24 20:00 12/19/24 20:00
MDM/Problems Addressed
MDM/Problems Addressed:
64-year-old male presenting to the emergency department today with concerns of lightheadedness paresthesia and nausea today was maximal for about 10 minutes now very minimal. Vital signs showing elevated blood pressure otherwise vital signs are
normal. Does have a new diagnosis of prostate cancer is not anticoagulated currently dimer was ordered and elevated concerning the CT scan was ordered. Otherwise EKG without emergent findings labs otherwise unremarkable troponin negative.
Orthostatics normal. Patient watched here for multiple hours with no events on the monitor feels well at this point ambulating well. CT PE without emergent findings incidental finding of thyroid abnormality was discussed. He will follow-up as an
outpatient. Otherwise stable for discharge close outpatient follow-up. Return precautions given.
*Critical Care Note
Total Time (30-74mins, 75-104mins- exclusive of procedures): Not Applicable
ED Attending Note
-
Portions of this chart may have been created with voice recognition software.� Occasional wrong word or��sound alike� substitutions may have occurred due to the inherent limitations of voice recognition software.
Discharge Plan
Departure
Patient Disposition: Home (Routine Discharge)
Date of Disposition: 12/19/24
Time of Disposition: 20:10
Patient with high blood pressure during this ER visit?: No
Condition: Good
Covid-19: Not Applicable
Discharge Problem:
Lightheadedness
Instructions: Dizziness, Nonvertigo, (DC)
Prescriptions:
No Action
metformin 500 MG tablet
1,000 mg PO BID
Januvia 100 MG tablet
100 mg PO DAILY Qty: 30 1RF
Eliquis 5 MG tablet
5 mg PO BID
valsartan [Diovan] 320 mg tablet
320 mg PO DAILY Qty: 30 0RF
metoprolol succinate 50 mg Tablet Extended Release 24 Hr
50 mg PO BID Qty: 60 0RF
nifedipine 30 mg Tablet Extended Release
30 mg PO BID Qty: 60 0RF
rosuvastatin 10 mg Tablet
10 mg PO HS
insulin glargine [Lantus Solostar U-100 Insulin] 100 unit/mL (3 mL) insulin pen
17 unit SC HS
Referrals:
Catarino Torres MD [Family Provider, Family Practice]
Activity Restrictions/Additional Instructions:
You came to the emergency department today with multiple symptoms. Here you have a reassuring assessment. Please follow closely with the primary care doctor within 1 week. Return for any worsening, new or concerning symptoms. Additionally on
your CT scan you were found to have a right thyroid lesion. It is recommended to get an outpatient ultrasound for further assessment.
Interventions
Interventions:
*Risk Screen - Suicide Last Done: 12/19/24 14:02
*General Assessment Last Done: 12/19/24 14:02
*Neglect/Abuse Screening Last Done: 12/19/24 14:02
*ED- Fall Risk Assessment Last Done: 12/19/24 15:38
*ED COVID-19 Vaccine History Last Done: 12/19/24 15:38
ED- Neurological Assessment Last Done: 12/19/24 15:44
ED- Cardiac Assessment Last Done: 12/19/24 15:44
Discharge Date and Time
Print Language: GEORGIAN
[2024-12-19 18:26] LABS: TSH Reflex To Free T4 2.38 uIU/ml (0.47-4.68)
== END 2024-12-19 20:28 | disposition home or self-care (01) ==
LOC: EMR 13:50
PROVIDERS: Emergency Medicine; Physician Assistant; EMERGENCY PHYSICIAN Student in an Organized Health Care Education/Training Program; FAMILY PHYSICIAN Family Medicine
DX: R42 Dizziness and giddiness (principal); E11.9 Type 2 diabetes mellitus without complications; E78.00 Pure hypercholesterolemia, unspecified; I10 Essential (primary) hypertension; C61 Malignant neoplasm of prostate; Z85.72 Personal history of non-Hodgkin lymphomas; R79.1 Abnormal coagulation profile
CPT/HCPCS: 96360; 99284; 71275; 80053; 81003; 81015; 83690; 83735; 84443; 84484; 85025; 85379; 93005; Q9967

== ENCOUNTER 2024-12-26 09:58 | Emergency (ER) | payer BC, SELFPAY ==
[2024-12-26 10:02] VITALS: BP 110/64
[2024-12-26 10:21] LABS: % Basophils 0.4 % (0-2); % Eosinophils 2.4 % (0-6); % Immature Granulocytes 0.4 % (0-0.5); % Monocytes 8.7 % (1.7-9.3); % Neutrophils 70.1 % (42.2-75.2); Absolute Eosinophils 0.2 10^3/uL (0-0.7); Absolute Lymphocytes 1.8 10^3/uL (1.2-3.4); Absolute Monocytes 0.9 10^3/uL (0.1-0.6); Hematocrit 38.9 % (39.0-52.0); Hemoglobin 13.3 g/dL (13.0-18.0); Mean Corp Hgb Conc. 34.2 g/dL (33.0-37.0); Mean Corpuscular Hgb 28.1 pg (27.0-31.0); Mean Corpuscular Volume 82.2 fL (80.0-94.0); Mean Platelet Volume 10.8 fL (7.4-10.4); Nucleated Red Blood Cells % 0 % (-); Platelet Count 214 10^3/uL (130-400); Red Blood Cell Count 4.73 10^6/uL (4.70-6.10); Red Cell Dist. Width 14.9 % (11.5-14.5); White Blood Cell Count 9.9 10^3/uL (4.8-10.8)
[2024-12-26 10:43] LABS: Troponin I < 0.012 ng/ml
[2024-12-26 10:51] LABS: ALT (SGPT) 21 U/L (0-50); AST (SGOT) 22 U/L (17-59); Albumin 4.9 g/dl (3.5-5.0); Alkaline Phosphatase 53 U/L (38-126); Blood Urea Nitrogen 20 mg/dl (9-20); Calcium 10.3 mg/dl (8.4-10.2); Carbon Dioxide 22 mmol/L (22-30); Chloride 107 mmol/L (98-107); Glucose 158 mg/dl (70-99); Potassium 4.7 mmol/L (3.5-5.1); Sodium 139 mmol/L (135-145); Total Bilirubin 0.6 mg/dl (0.2-1.3); Total Protein 8.3 g/dl (6.3-8.2); eGFR > 60.00
--- NOTE | 2024-12-26 12:14 | ED.GENMED ---
History of Present Illness
General
Chief Complaint: Chest Pain
Source: patient
Exam Limitations: none
Time Seen by Provider: 12/26/24 11:39
Nursing documentation reviewed up to this point in time: agreed with
History of Present Illness
History of Present Illness:
Patient is a 64 yr old male w/ PMH of metastatic prostate cancer, currently on medications (Uroxaltral and Casodex) followed at [place], hypertension insulin diabetes history of non-Hodgkin lymphoma with bone marrow transplant 1996, colon resection
brain cavernous malformations, afib/ablation, watchman's no longer on Eliquis presents to the ED for evaluation. PT reports prior to arrival he was sitting watching TV and had left-sided chest lateral rib pressure discomfort and felt short of
breath. Patient reports he was seen here 7 days ago for evaluation of numbness and tingling to his chest arms and legs. He had a negative PE on CT.
Past History
Past History
ED Past Medical History: Arrthythmia (Atrial fib), Cancer, HTN, Hypercholesterolemia and NIDDM
ED Past Surgical History: Orthopedic and Other (Bone marrow)
Social History
Tobacco: Non-smoker
Alcohol: Occasional
Personal:
Living: with family
Employment: Employed
Family History
Family History: Other (reviewed and non-contributory)
Review of Systems
Review of Systems
Allergies reviewed?: Yes
All Other Systems: ROS reviewed and negative except as documented in HPI and ROS
Constitutional: Reports no symptoms; Denies fever, fatigue or chills
Respiratory: Reports trouble breathing
Cardiac: Reports chest pain; Denies diaphoresis, palpitations or syncope
ABD/GI: Reports no symptoms
: Reports no symptoms
Musculoskeletal: Reports no symptoms
Skin: Reports no symptoms
Neurological: Reports other (numbness/tingling to b/l arms/chest/abd b/l legs )
Psychiatric: Reports no symptoms
Phy Exam
General Physical Exam
General Presentation: no apparent distress
General age: appears stated age
General Skin: warm and dry
General Habitus: normal
General Mental: alert
General Hydration: appears well hydrated
Cardiovascular Exam
Cardiovascular Exam: regular rate/rhythm, no murmur and normal peripheral pulses
Pulmonary Exam
Pulmonary Exam: lungs clear, no respiratory distress and chest non tender
Neurological Exam
Neurological Exam: alert and oriented x3
Musculoskeletal Exam
Musculoskeletal Exam: full ROM
Skin Exam
Skin Exam: normal color and warm/dry
Psychiatric Exam
Psychiatric Exam: normal mood/affect
Scores
Heart Score for Chest Pain Patients
STEMI patient?: Not applicable
Course
Orders/Labs/Results
Orders:
Orders
12/26/24 10:00
EKG [Electrocardiogram (*1)] Urgent
Reason for Study: Chest Pain
12/26/24 10:01
EKG- Treatment ONCE
12/26/24 10:11
Complete Blood Count/With Diff Urgent
Comprehensive Metabolic Panel Urgent
Troponin I Urgent
12/26/24 14:06
Electrocardiogram (*1) Stat
Reason for Study: Other
Other Reason for Exam: chest pain
EKG- Treatment ONCE
12/26/24 14:13
Troponin I Urgent
Abnormal Lab Results
12/26/24
10:11
Hct 38.9 L %
(39.0-52.0)
RDW 14.9 H %
(11.5-14.5)
MPV 10.8 H fL
(7.4-10.4)
Absolute Neuts (auto) 7.0 H 10^3/uL
(1.4-6.5)
Absolute Monos (auto) 0.9 H 10^3/uL
(0.1-0.6)
Lymphocytes % 18.0 L %
(20.5-51.1)
Glucose 158 H mg/dl
(70-99)
Calcium 10.3 H mg/dl
(8.4-10.2)
Total Protein 8.3 H g/dl
(6.3-8.2)
12/26/24 10:11
12/26/24 10:11
Vital Signs
Initial and Last Documented VS:
Initial Vital Signs
Temp Pulse Resp BP Pulse Ox
98.3 F 82 18 110/64 99
12/26/24 10:02 12/26/24 10:02 12/26/24 10:02 12/26/24 10:02 12/26/24 10:02
Last Documented Vital Signs
Temp Pulse Resp BP Pulse Ox
98.3 F 82 16 115/72 97
12/26/24 10:02 12/26/24 14:20 12/26/24 14:20 12/26/24 14:20 12/26/24 14:20
Software Engineer Mobile consulted with Physician
Software Engineer Mobile consulted with physician?: Yes
Name of Physician Consulted: dominik
MDM/Problems Addressed
MDM/Problems Addressed:
As documented patient is a 62-year-old male with metastatic prostate cancer presents today for evaluation. Patient planing of little dizziness and then felt pressure to the left side of his chest and rib area with very minimal shortness of breath.
He also has had paresthesias to his abdomen arms and legs. He was seen here 1 week ago for dizziness/lightheadedness and also paresthesias and at that time had a CT chest PE study which is negative for blood clot. He does have the Watchman
procedure
Who presents awake alert no acute distress feeling better here in the ER he is not tachycardic not hypoxic lungs are clear with recent negative PE just a week ago less likely PE. His cardiac enzymes x 2 were negative. No acute findings on EKG
normal sinus rhythm no acute findings on EKG. No definitive answer for patient's symptoms however no acute emergent findings during workup. Case reviewed with ED physician will DC home with an [id number] with cardiology. He is a patient
of Dr. Corona will place on chest pain hotline.
*Radiology
Radiology exam reviewed: radiology read reviewed
*Pulse Oximetry
Patient hypoxic: no
*EKG
Interpretation: normal
Heart Rate: 78
Rate: normal
Rhythm: sinus
Ischemia: non-specific ST changes
*Critical Care Note
Total Time (30-74mins, 75-104mins- exclusive of procedures): Not Applicable
ED Attending Note
-
Portions of this chart may have been created with voice recognition software.� Occasional wrong word or��sound alike� substitutions may have occurred due to the inherent limitations of voice recognition software.
Discharge Plan
Departure
Patient Disposition: Home (Routine Discharge)
Date of Disposition: 12/26/24
Time of Disposition: 15:07
Patient with high blood pressure during this ER visit?: No
Condition: Fair
Covid-19: Not Applicable
Discharge Problem:
Chest pain
Instructions: Chest Pain DCA Follow Up
Prescriptions:
No Action
metformin 500 MG tablet
1,000 mg PO BID
Januvia 100 MG tablet
100 mg PO DAILY Qty: 30 1RF
Eliquis 5 MG tablet
5 mg PO BID
valsartan [Diovan] 320 mg tablet
320 mg PO DAILY Qty: 30 0RF
metoprolol succinate 50 mg Tablet Extended Release 24 Hr
50 mg PO BID Qty: 60 0RF
nifedipine 30 mg Tablet Extended Release
30 mg PO BID Qty: 60 0RF
rosuvastatin 10 mg Tablet
10 mg PO HS
insulin glargine [Lantus Solostar U-100 Insulin] 100 unit/mL (3 mL) insulin pen
17 unit SC HS
Referrals:
Catarino Torres MD [Family Provider, [facility]]
Neftaly Gay PA [Non-Admitting Privileges, General]
Arian Gay MD [Active, Cardiology]
Activity Restrictions/Additional Instructions:
As discussed you were placed on the chest pain hotline ;you should receive a phone call from cardiology in the next 2 days; if you do not please give them a call to schedule an appointment. Return if any worsening of symptoms.
Interventions
Interventions:
*Risk Screen - Suicide Last Done: 12/26/24 10:02
*General Assessment Last Done: 12/26/24 14:20
*Neglect/Abuse Screening Last Done: 12/26/24 10:02
*ED- Fall Risk Assessment Last Done: 12/26/24 14:20
*ED COVID-19 Vaccine History Last Done: 12/26/24 14:20
ED- Cardiac Assessment Last Done: 12/26/24 14:20
Discharge Date and Time
Print Language: NAMIBIAN
[2024-12-26 14:20] VITALS: BP 115/72
[2024-12-26 14:58] LABS: Troponin I < 0.012 ng/ml
== END 2024-12-26 15:40 | disposition home or self-care (01) ==
LOC: EMR 09:58
PROVIDERS: Nurse Practitioner; EMERGENCY PHYSICIAN Emergency Medicine; FAMILY PHYSICIAN Family Medicine
DX: R07.89 Other chest pain (principal)
CPT/HCPCS: 99284; 80053; 84484; 85025; 93005